=== PATIENT | female | born 1960 | race Caucasian/White ===

== ENCOUNTER 2017-10-11 12:09 | Observation (INO) | payer OTHER ==
[~2017-10-11] VITALS: Ht 154.9 cm; Wt 65.8 kg
--- OUTSIDE RECORDS SUMMARY | 2017-10-11 12:11 | XMS REPORT | Summary of Care ---
Author Author Rohan Hale, Sigrid Mckenna Unknown Address Unknown Phone Unavailable Care Team Providers Care Preschool Adviser Name Role Phone AMMON Lutz, DALE Unavailable Unavailable Rohan Hale, Sigrid Unavailable Unavailable MARY Lutz, SAÚL Unavailable Unavailable EASTON N.PSharonda, NENITA Unavailable Unavailable RUPERTO MCCLELLAN [place], NEENA ELLIOTT Unavailable Unavailable RUPERTO Lutz, NEENA Unavailable Unavailable Ammon MCCLELLAN, Dale Unavailable Unavailable Unavailable Unavailable Functional Status Name Dates Details Functional status health issues are not documented Status: Name Dates Details Cognitive status health issues are not documented Status: Problems Name Dates Details Encounter for routine gynecological examination (V72.31, Z01.419) Status: Active Visit for screening mammogram (V76.12, Z12.31) Status: Active Lump or mass in breast (611.72, N63.0) Status: Active Abdominal pain (789.00, R10.9) Status: Active UTI (lower urinary tract infection) (599.0, N39.0) Status: Active Diverticulitis of colon (562.11, K57.32) Status: Active Chest pain (786.50, R07.9) Status: Active Hip pain, acute, right (719.45, M25.551) Status: Active Nail disorder (703.9, L60.9) Status: Active Dilatation, aorta, congenital (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, 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) Status: Active Essential (primary) hypertension (401.9, I10) Status: Active Aortic aneurysm (441.9, I71.9) Status: Active Heart palpitations (785.1, R00.2) Status: Active Hyperlipidemia (272.4, E78.5) Status: Active Shortness of breath (786.05, R06.02) Status: Active Acute non-recurrent pansinusitis (461.8, J01.40) Status: Active Dysuria (788.1, R30.0) Status: Active Throat irritation (478.29, J39.2) Status: Active Essential (primary) hypertension (401.9, I10) Status: Active Oral thrush (112.0, B37.0) Status: Active 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, 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 Allergy to iodine (V14.8, Z88.8) Status: Active Hoarseness, persistent (784.42, R49.0) Status: Active Medications Name Dates Details Irbesartan 75 MG Oral Tablet TAKE 1 TABLET BY MOUTH EVERY DAY FOR HYPERTENSION Quantity: 90 CINDY HERNANDEZ M.D.ANTINOS * Start : 23-May-2017 Active Aspirin 81 MG TABS daily * Refills: 0 Active Simvastatin 40 MG Oral Tablet TAKE 1 TABLET DAILY AT BEDTIME * Quantity: 90 Refills: 1 MCCARTY-FOSTER N.P., NENITA * Start : 23-Jun-2016 Active Nystatin 229120 UNIT/ML Mouth/Throat Suspension SWISH AND SPIT 5ML 4 TIMES A DAY * Quantity: 200 Refills: 2 MCCARTY-FOSTER N.P., NENITA * Start : 11-Dec-2016 Active Nystatin 789768 UNIT/ML Mouth/Throat Suspension SWISH AND SWALLOW 5 ML 3 TIMES DAILY * Quantity: 200 Refills: 1 DALE MELGOZA M.D. * Start : 14-Jan-2017 Active Fluconazole 150 MG Oral Tablet TAKE 1 TABLET 1 TIME ONLY. * Quantity: 1 Refills: 1 DALE MELGOZA M.D. * Start : 14-Jan-2017 Active MethylPREDNISolone 32 MG Oral Tablet Take 32mg by mouth at 12 hours before and again at 2 hours before contrast media injection. * Quantity: 2 Refills: 0 CINDY HERNANDEZ M.D.ANTINOS * Start : 19-Jan-2017 Active Allergies and Adverse Reactions Name Dates Details Codeine Derivatives (Allergy) Status: Active Morphine Derivatives (Allergy) Status: Active Penicillins (Allergy) Status: Active prednisoLONE (Allergy) Status: Active Sulfa Drugs (Adverse Event) Reaction: Other Status: Active Fruit (Allergy) Reaction: Swelling Status: Active Past Medical History Name Dates Details History of Diverticulosis (562.10, K57.90) Status: Resolved History of essential hypertension (V12.59, Z86.79) Status: Resolved History of Fibrosis of uterus (621.8, N85.8) Status: Resolved History of hiatal hernia (V12.79, Z87.19) Status: Resolved History of Multiparity (V61.5, Z64.1) Status: Resolved History of neutropenia (V12.3, Z86.2) Status: Resolved History of Rectal polyp (569.0, K62.1) Status: Resolved Personal history of urinary tract infection (V13.02, Z87.440) Status: Resolved Procedures Procedure Dates Details History of Hysterectomy Completed History of Abdominoplasty Completed History of Oophorectomy Completed History of Breast Surgery Reduction Procedure Elective Completed History of Section Completed Immunization Name Dates Details Immunizations not documented Family History Name Dates Details Family history of Thyroid Disorder (V18.19) Comments: Family History Status: Active Family history of Heart Disease (V17.49) Comments: Family History Status: Active Family history of Kidney Cancer (V16.51) Comments: Family History Status: Active Family history of Type 2 Diabetes Mellitus Comments: Family History Status: Active Name Dates Details Family history of Hypertension (V17.49) Status: Active Family history of Cancer Status: Active Family history of Diabetes Mellitus (V18.0) Status: Active Family history of Coronary artery disease (414.00, I25.10) Status: Active Social History Name Dates Details - Status: Name Dates Details Never smoker Vital Signs Date Test Result Details No Known Vitals to report Results Date Description Value Details Results not documented Plan of Care Name Dates Details Planned Observations Planned Goals not documented Instructions Name Dates Details Instructions not documented Encounters Appointment; CHELLY STOKES M.D. Encounter Diagnosis: Problem not documented On: 24-Feb-2016 15:00 Appointment; SAÚL HERNANDEZ M.D. Encounter Diagnosis: Problem not documented On: 23-Mar-2016 11:40 Appointment; RODRIGO HUYNH Encounter Diagnosis: Problem not documented On: 05-May-2016 10:00 Appointment; SAÚL HERNANDEZ M.D. Encounter Diagnosis: Problem not documented On: 23-Jun-2016 13:20 Appointment; NENITA MCCORMACK NP Encounter Diagnosis: Problem not documented On: 11-Dec-2016 10:45 Appointment; NENITA MCCORMACK NP Encounter Diagnosis: Problem not documented On: 12-Jan-2017 13:30 Appointment; DALE MELGOZA M.D. Encounter Diagnosis: Problem not documented On: 14-Jan-2017 9:45 Appointment; DALE MELGOZA M.D. Encounter Diagnosis: Problem not documented On: 04-Feb-2017 13:45
[2017-10-11] MEDS ORDERED: SODIUM CHLORIDE 0.9% 1000ML 1,000 ML IV STA (12:16)
[2017-10-11] MEDS ORDERED: ONDANSETRON HCL INJ 2 MG/ML VIAL IV STA (12:16)
[2017-10-11] MEDS ORDERED: MORPHINE SULFATE 4 MG/ML SYR IV STA (12:16)
[2017-10-11] MEDS ORDERED: DIATRIZOATE MEGL/DIATRIZOA SOD 30 ML BTL PO ONE (12:30)
[2017-10-11] MEDS ORDERED: MORPHINE SULFATE 2 MG/ML SYR ONE (12:44)
[2017-10-11 12:49] LABS: BASOPHILS % 0.9 % (0.0-1.0); EOSINOPHILS # (AUTO) 0.1 (0.0-0.4); EOSINOPHILS % 6.6 % (0.0-6.0); HEMATOCRIT 40.3 % (34.2-44.1); HEMOGLOBIN 13.6 g/dL (12.0-16.0); LYMPHOCYTES # (AUTO) 0.9 (1.0-3.2); LYMPHOCYTES % 44.1 % (18.0-39.1); MEAN CORPUSCULAR HEMOGLOBIN 29.6 pg (28-32); MEAN CORPUSCULAR HGB CONC 33.7 g/dL (31-35); MEAN CORPUSCULAR VOLUME 87.8 fL (81-99); MONOCYTES # (AUTO) 0.3 (0.2-0.8); MONOCYTES % 16.1 % (4.4-11.3); NEUTROPHILS # (AUTO) 0.7 (2.1-6.9); NEUTROPHILS % 32.3 % (38.7-80.0); PLATELET COUNT 215 x10e3/uL (140-360); RED BLOOD COUNT 4.59 x10e6/uL (3.6-5.1); RED CELL DISTRIBUTION WIDTH 11.9 % (11.7-14.4)
[2017-10-11 13:01] LABS: BILIRUBIN,URINE NEGATIVE (NEGATIVE); KETONES,URINE NEGATIVE (NEGATIVE); LEUKOCYTE ESTERASE ,URINE NEGATIVE (NEGATIVE); NITRITE,URINE NEGATIVE (NEGATIVE); PROTEIN,URINE DIPSTICK NEGATIVE (NEGATIVE); URINE UROBILINOGEN 0.2 mg/dL (0.2 - 1)
[2017-10-11 13:03] LABS: CLARITY,URINE CLEAR (CLEAR); COLOR,URINE YELLOW (YELLOW)
[2017-10-11 13:07] LABS: ALANINE AMINOTRANSFERASE 14 IU/L (0-55); ALBUMIN 4.2 g/dL (3.5-5.0); ALBUMIN/GLOBULIN RATIO 1.1 (0.8-2.0); ALKALINE PHOSPHATASE 74 IU/L (40-150); ANION GAP 12.4 mmol/L (8-16); BLOOD UREA NITROGEN 14 mg/dL (7-26); BUN/CREATININE RATIO 18 (6-25); CALCIUM 9.2 mg/dL (8.4-10.2); CARBON DIOXIDE 26 mmol/L (22-29); CHLORIDE 105 mmol/L (98-107); CREATININE, SERUM 0.77 mg/dL (0.57-1.11); EST GLOMERULAR FILTRATION RATE > 60 ML/MIN (60-); GLUCOSE 102 mg/dL (74-118); POTASSIUM 3.4 mmol/L (3.5-5.1); SODIUM 140 mmol/L (136-145)
[2017-10-11 14:19] LABS: BACTERIA,URINE FEW /HPF; EPITHELIAL CELLS,URINE FEW /LPF; MUCUS,URINE MANY (RARE); RBC,URINE 0-5 /HPF (0-5); WBC,URINE (MAN) 0-5 /HPF (0-5)
--- NOTE | 2017-10-11 14:20 | Diagnostic Imaging Report ---
PROCEDURE: CT ABDOMEN AND PELVIS WITH CONTRAST TECHNIQUE: The abdomen and pelvis were scanned utilizing a multidetector helical scanner from the diaphragm to the lesser trochanter after the IV administration of 100 cc of Isovue 370 and the oral administration of dilute Gastrografin. Coronal and sagittal multiplanar reformations were obtained. COMPARISON: None. INDICATIONS: RIGHT LOWER QUADRANT PAIN FINDINGS: LOWER THORAX: Unremarkable HEPATOBILIARY: No focal hepatic lesions. No biliary ductal dilatation. Gallbladder is unremarkable. SPLEEN: No splenomegaly. PANCREAS: No focal masses or ductal dilatation. ADRENALS: No adrenal nodules. KIDNEYS/URETERS: 0.9 cm nonobstructing calculus in the superior pole of the right kidney (series 2, image 21). No other renal or ureteral calculi. No hydronephrosis, hydroureter, or evidence of obstruction. No solid enhancing masses. PELVIC ORGANS/BLADDER: The bladder is unremarkable. Uterus is absent. No adnexal masses. PERITONEUM / RETROPERITONEUM: No free air or fluid. LYMPH NODES: No lymphadenopathy. VESSELS: Atherosclerotic calcification of the infrarenal abdominal aorta and proximal iliac vessels. GI TRACT: Appendix is dilated, measuring 1.0-1.1 cm in diameter, with mild enhancement. No significant periappendiceal stranding (series 2, images 60-66 and coronal images 43-49). Distal descending and proximal sigmoid colon diverticulosis without surrounding inflammatory changes to suggest diverticulitis. No bowel dilation or evidence of obstruction. BONES AND SOFT TISSUES: No aggressive lytic lesion. No significant soft tissue abnormalities. IMPRESSION: 1. dilated appendix with mild enhancement. No significant periappendiceal stranding. This may represent very early/evolving appendicitis, in the appropriate clinical setting. 2. Distal descending and sigmoid colon diverticulosis, without diverticulitis. The rest of the bowel is grossly unremarkable. 3. 0.9 cm nonobstructing calculus in the superior pole of the right kidney 4. Findings discussed with Dr. Estrada October 11, 2017 at 1420 hrs. Manny Hernandez M.D. Dictated by: Manny Hernandez M.D. on 10/11/2017 at 14:30 Electronically approved by: Manny Hernandez M.D. on 10/11/2017 at 14:30
[2017-10-11] MEDS ORDERED: SODIUM CHLORIDE 0.9% 50ML 50 ML ONE (14:22)
[2017-10-11] MEDS ORDERED: IOPAMIDOL 370 MG/ML 200 ML INFUS..BTL INJ ONE (14:22)
[2017-10-11] MEDS ORDERED: HYDROMORPHONE 1MG/1ML INJ IV PRN (15:45)
[2017-10-11] MEDS: D5.45%NS/KCL 20MEQ 1,000 ML IV SCH (15:59)
--- OUTSIDE RECORDS SUMMARY | 2017-10-11 16:08 | XMS REPORT ---
[facility] Address Unknown Phone Unavailable Care Team Providers Care Tub Tender Name Role Phone CARLA DIAZ Unavailable Unavailable Problems This patient has no known problems. Allergies, Adverse Reactions, Alerts This patient has no known allergies or adverse reactions. Medications This patient has no known medications. Results Test Description Test Time Test Comments Text Results Atomic Results Result Comments CT ABDOMEN/PELVIS W [place] [id number] Patient Name: OLENA ANTHONY MR #: [id number] : 1960 Age/Sex: 57/F Req #: [id number] Adm Physician: Ordered by: ELISA LOMELI APPARATUS LINEMAN Report #: [id number] Location: ER Room/Bed: Procedure: [id number] CT/CT ABDOMEN/PELVIS W Exam Date: 10/11/17 Exam Time: 1320 REPORT STATUS: Signed PROCEDURE: CT ABDOMEN AND PELVIS WITH CONTRAST TECHNIQUE: The abdomen and pelvis were scanned utilizing a multidetector helical scanner from the diaphragm to the lesser trochanter after the IV administration of 100 cc of Isovue 370 and the oral administration of dilute Gastrografin. Coronal and sagittal multiplanar reformations were obtained. COMPARISON: None. INDICATIONS: RIGHT LOWER QUADRANT PAIN FINDINGS: LOWER THORAX: Unremarkable HEPATOBILIARY: No focal hepatic lesions. No biliary ductal dilatation. Gallbladder is unremarkable. SPLEEN: No splenomegaly. PANCREAS: No focal masses or ductal dilatation. ADRENALS: No adrenal nodules. KIDNEYS/URETERS: 0.9 cm nonobstructing calculus in the superior pole of the right kidney (series 2, image 21). No other renal or ureteral calculi. No hydronephrosis, hydroureter, or evidence of obstruction. No solid enhancing masses. PELVIC ORGANS/BLADDER: The bladder is unremarkable. Uterus is absent. No adnexal masses. PERITONEUM / RETROPERITONEUM: No free air or fluid. LYMPH NODES: No lymphadenopathy. VESSELS: Atherosclerotic calcification of the infrarenal abdominal aorta and proximal iliac vessels. GI TRACT: Appendix is dilated, measuring 1.0-1.1 cm in diameter, with mild enhancement. No significant periappendiceal stranding ( series 2, images 60-66 and coronal images 43-49). Distal descending and proximal sigmoid colon diverticulosis without surrounding inflammatory changes to suggest diverticulitis. No bowel dilation or evidence of obstruction. BONES AND SOFT TISSUES: No aggressive lytic lesion. No significant soft tissue abnormalities. IMPRESSION: 1. dilated appendix with mild enhancement. No significant periappendiceal stranding. This may represent very early/evolving appendicitis, in the appropriate clinical setting. 2. Distal descending and sigmoid colon diverticulosis, without diverticulitis. The rest of the bowel is grossly unremarkable. 3. 0.9 cm nonobstructing calculus in the superior pole of the right kidney 4. Findings discussed with Dr. Diaz October 11, 2017 at 1420 hrs. Isabella Hernandez M.D. Dictated by: Isabella Hernandez M.D. on 10/11/2017 at 14:30 Electronically approved by: Isabella Hernandez M.D. on 2017 at 14:30 Dictated By: ISABELLA HERNANDEZ MD 1430 Transcribed By: NAOMY on 1430 COPY TO: ELISA LOMELI NP
[2017-10-11 16:32] VITALS: BP 149/86
[2017-10-11] MEDS ORDERED: CEFOXITIN SOD 1 GM VIAL IV SCH (17:00)
[2017-10-11 17:14] VITALS: BP 149/86
[2017-10-11 17:18] VITALS: BP 149/86
[2017-10-11] MEDS: METRONIDAZOLE 500MG/NS 100ML 100 ML IV SCH (17:51)
[2017-10-11] MEDS ORDERED: METRONIDAZOLE 500MG/NS 100ML IV SCH (18:00)
[2017-10-11] MEDS ORDERED: LEVOFLOXACIN 500MG/D5W 100ML 100 ML IV SCH (18:15)
[2017-10-11 19:35] VITALS: BP 121/64
[2017-10-11] MEDS: ONDANSETRON HCL INJ 2 MG/ML VIAL IV PRN (19:41)
[2017-10-11 20:19] VITALS: BP 121/64
[2017-10-11] MEDS ORDERED: CEFOXITIN 1GM/ DEXTROSE 50ML ML IV SCH (22:00)
[2017-10-12] VITALS: BP 98/59
[2017-10-12] MEDS: METRONIDAZOLE 500MG/NS 100ML 100 ML IV SCH ×3 (00:35→11:40)
[2017-10-12] MEDS: ONDANSETRON HCL INJ 2 MG/ML VIAL IV PRN ×2 (00:46→07:50)
[2017-10-12] MEDS: D5.45%NS/KCL 20MEQ 1,000 ML IV SCH ×2 (00:53→08:06)
[2017-10-12 05:00] VITALS: BP 95/59
[2017-10-12 07:11] LABS: BASOPHILS % 0.6 % (0.0-1.0); EOSINOPHILS # (AUTO) 0.2 (0.0-0.4); EOSINOPHILS % 10.3 % (0.0-6.0); HEMATOCRIT 37.1 % (34.2-44.1); HEMOGLOBIN 12.5 g/dL (12.0-16.0); LYMPHOCYTES # (AUTO) 0.8 (1.0-3.2); LYMPHOCYTES % 46.9 % (18.0-39.1); MEAN CORPUSCULAR HEMOGLOBIN 29.9 pg (28-32); MEAN CORPUSCULAR HGB CONC 33.7 g/dL (31-35); MEAN CORPUSCULAR VOLUME 88.8 fL (81-99); MONOCYTES # (AUTO) 0.3 (0.2-0.8); MONOCYTES % 18.9 % (4.4-11.3); NEUTROPHILS # (AUTO) 0.4 (2.1-6.9); NEUTROPHILS % 22.7 % (38.7-80.0); PLATELET COUNT 194 x10e3/uL (140-360); RED BLOOD COUNT 4.18 x10e6/uL (3.6-5.1); RED CELL DISTRIBUTION WIDTH 11.9 % (11.7-14.4)
[2017-10-12 07:26] LABS: ANION GAP 10.7 mmol/L (8-16); BLOOD UREA NITROGEN 8 mg/dL (7-26); BUN/CREATININE RATIO 10 (6-25); CALCIUM 8.7 mg/dL (8.4-10.2); CARBON DIOXIDE 27 mmol/L (22-29); CHLORIDE 107 mmol/L (98-107); CREATININE, SERUM 0.79 mg/dL (0.57-1.11); EST GLOMERULAR FILTRATION RATE > 60 ML/MIN (60-); GLUCOSE 94 mg/dL (74-118); POTASSIUM 3.7 mmol/L (3.5-5.1); SODIUM 141 mmol/L (136-145)
[2017-10-12 07:33] VITALS: BP 105/67
--- NOTE | 2017-10-12 07:52 | History and Physical ---
CHIEF COMPLAINT: Nausea, vomiting and abdominal pain since 1 week. HISTORY OF PRESENT ILLNESS: A 57-year-old pleasant white female with a past medical history of hypertension was admitted at [facility] yesterday with the above complaints. The patient was seen in the office yesterday morning with the above complaints. As per the patient, since the last 1 week the patient started having nausea, vomiting and abdominal pain initially for the first 1-2 days. The patient had like 3-4 vomiting per day. Then gradually the vomiting got better, but nausea and abdominal pain on and off continued. History of low-grade fever. Hence, the patient came to my office yesterday. After examining and seeing the patient, I referred the patient to the ER for further care and treatment. In the emergency room, the patient was seen by the emergency room doctor, and was admitted to the hospital with possible appendicitis. The patient was seen surgeon, Dr. John Winters, last evening. At present, the patient is lying comfortably in bed. No apparent distress. No chest pain. No shortness of breath. No nausea or vomiting. Abdominal cramps and "gurgling sound" of the abdomen plus history of loose bowels last night plus. No loss of consciousness. No palpitations. No headaches. No hematemesis. No melena. No hematuria. No dysuria. No fever. No cough. No witnessed seizures. PAST MEDICAL HISTORY: Hypertension. MEDICATIONS: Avapro 75 mg p.o. daily. SURGICAL HISTORY: times 2, hysterectomy, breast reduction. FAMILY HISTORY: Father has hypertension. SOCIAL HISTORY: No smoking. No alcohol. No illicit drug use. ALLERGIES: PENICILLIN, CODEINE AND SULFA. REVIEW OF SYSTEMS: As per HPI. PHYSICAL EXAMINATION GENERAL: The patient is alert and oriented times 3. No apparent distress. Laying in bed. VITALS: Temperature is 97, pulse 60 per minute, respirations 16 per minute, blood pressure is 110/60, and saturation is 96%. HEENT: No signs of icterus. No pallor. Normocephalic and atraumatic. PERRLA. NECK: Soft and supple. LUNGS: Air entry bilaterally equal. ABDOMEN: Soft. Right-sided mild tenderness plus. Bowel sounds heard. AUTO PHONE INSTALLER: Alert and oriented times 3. No focal deficit. EXTREMITIES: No cyanosis or clubbing. No calf pain. LABS: On admission to the ER, white count 2.1, hemoglobin 13, hematocrit 40.3, and platelets 215,000. Sodium 140, potassium 3.4, chloride 105, bicarb 26, BUN 14, creatinine 0.7, glucose 102. LFTs noted. Urine noted. CT of the abdomen and pelvis showed dilated appendix with mild enhancement. No significant periappendiceal stranding. Distal descending and sigmoid colon diverticulosis without diverticulitis. A 0.9 cm nonobstructing calculus in the superior pole of the right kidney. ASSESSMENT 1. Abdominal pain, nausea and vomiting. 2. History of hypertension. PLAN: Admit the patient med/surg. N.p.o., IV fluids, IV antibiotics of Levaquin and Flagyl. Surgeon, Dr. John Winters, noted. Could be gastroenteritis. Further care and treatment while the patient is in the hospital. Discussed with the patient in detail. Job#: [id number]
[2017-10-12 08:28] LABS: ANISOCYTOSIS N; EOSINOPHILS % (MANUAL) 9 % (0-7); LYMPHOCYTES % (MANUAL) 46 % (19-48); MONOCYTES % (MANUAL) 19 % (3.4-9.0); NEUTROPHILS % (MANUAL) 26 % (40-74); PLATELET ESTIMATE ADEQUATE; PLATELET MORPHOLOGY COMMENT NORMAL
[2017-10-12 11:33] VITALS: BP 117/64
[2017-10-12 12:00] VITALS: BP 117/64
[2017-10-12] MEDS ORDERED: CIPRO500 MG PO (15:09)
[2017-10-12 15:33] VITALS: BP 110/57
== END 2017-10-12 15:35 | disposition home or self-care (01) ==
LOC: ER 12:09 → ERHOLD 16:06 → IMCU 16:08
PROVIDERS: ADMIT Internal Medicine; ATTEND Internal Medicine
DX: K52.9 Noninfective gastroenteritis and colitis, unspecified (principal); K38.8 Other specified diseases of appendix; I10 Essential (primary) hypertension
CPT/HCPCS: 36415 ×2; 74177; 80048; 80053; 81001; 85025 ×2; 87086; 99284; G0378 ×2; J0694; J1956; J2405 ×2; J7030; Q9967; J2270

== ENCOUNTER → 2017-12-30 | Outpatient (CLI) | payer OTHER ==
[~2017-12-30] MED LIST: CIPRO500 MG PO
--- NOTE | 2017-12-30 12:32 | Diagnostic Imaging Report ---
PROCEDURE:X-RAY ABDOMEN - KUB COMPARISON:Abdominal CT 10/11/2017 INDICATIONS:CALCULUS OF KIDNEY FINDINGS: Stable 0.7 cm superior pole right renal calculus. Phleboliths project over the pelvis. There are no additional calcifications projected over the renal shadows, expected course of the ureters or bladder. There is a non-obstructed bowel-gas pattern. There are no acute osseous abnormalities. The lung bases are clear. CONCLUSION: Stable calculus in the superior pole of the right kidney. Dictated by: Jaime Toure M.D. on 12/30/2017 at 12:33 Electronically approved by: Jaime Toure M.D. on 12/30/2017 at 12:33
== END ==
LOC: RAD 11:34
PROVIDERS: ATTEND Urology
DX: N20.0 Calculus of kidney (principal)
CPT/HCPCS: 74018

== ENCOUNTER 2019-05-28 11:32 | Inpatient (IN) | payer OTHER ==
[~2019-05-28] VITALS: Ht 154.9 cm; Wt 64.4 kg
--- OUTSIDE RECORDS SUMMARY | 2019-05-28 11:34 | XMS REPORT | Continuity of Care Document ---
Author Author [facility] Address Unknown Phone Unavailable Care Team Providers Care Visitor Services Associate Name Role Phone Idibon Information Wyst Unavailable Unavailable Problems Problem Status Onset Date Classification Date Reported Comments Source Onychomycosis Active Problem 07/02/2016 [facility] Cellulitis of toe of right foot Active Problem 07/02/2016 [facility] Medications No Data Provided for This Section Allergies, Adverse Reactions, Alerts No Known Medication Allergies Immunizations No Data Provided for This Section Results No Data Provided for This Section Pathology Reports No Data Provided for This Section Diagnostic Reports No Data Provided for This Section Consultation Notes No Data Provided for This Section Discharge Summaries No Data Provided for This Section History and Physicals No Data Provided for This Section Vital Signs No Data Provided for This Section Encounters Location Location Details Encounter Type Encounter Number Reason For Visit Attending Provider ADM Date DC Date Status Source [facility] Unknown [id number] 03/17/2016 [facility]17[facility] [id number] 03/17/2016 03[facility]17[facility]2016 [facility] Unknown [id number] 03/17/2016 03/17/2016 [facility] Other [id number] 03/19/2016 03/19/2016 [facility] Other [id number] 03/19/2016 03/19/2016 [facility] refill [id number] 06/22/2016 06/22/2016 [facility] Procedures No Data Provided for This Section Assessment and Plan No Data Provided for This Section Plan of Care No Data Provided for This Section Social History Social History Date Source Social History ElementQualifiersDate Reported Do you smoke? . Answer: No Jun 25, 2016 Use of recreational / street drugs? . Answer: No Jun 25, 2016 Marital Status: . Jun 25, 2016 Do you exercise? . Answer: Yes, Type: running at home work outs 3x/week Jun 25, 2016 Do you drink alcohol? . 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/2016 [facility] Family History Value Date Source QualifierDescriptionCommentDate Reported Maternal Grandmother Comment not available Jun 25, 2016 Paternal Grandmother Comment not available Jun 25, 2016 Siblings Comment not available Jun 25, 2016 Maternal Grandfather Comment not available Jun 25, 2016 Children Comment not available Jun 25, 2016 Adopted Comment not available Jun 25, 2016 Father hypertension, heart disease Jun 25, 2016 Paternal Grandfather Comment not available Jun 25, 2016 Mother alive hypertension Jun 25, 2016 Other: Comment not available Jun 25, 2016 07/02/2016 [facility] Advance Directives No Data Provided for This Section Functional Status No Data Provided for This Section
--- OUTSIDE RECORDS SUMMARY | 2019-05-28 11:35 | XMS REPORT ---
Author Author Shai Worrell Organization [employer] Address Unknown Phone Unavailable Care Team Providers Care Pressurizer Name Role Phone Shai Worrell Unavailable Encounters Encounter Location Date Unknown [facility] March 17, 2016 Other [facility] March 19, 2016 Problems Problem Type Condition ICD-9 Code Onset Dates Condition Status Problem Onychomycosis B35.1 Active Social History Social History Element Qualifiers Date Reported Do you smoke? . Answer: No March 09, 2016 Use of recreational / street drugs? . Answer: No March 09, 2016 Marital Status: . March 09, 2016 Do you exercise? . Answer: Yes, Type: running at home work outs 3x/week March 09, 2016 Do you drink alcohol? . 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
--- OUTSIDE RECORDS SUMMARY | 2019-05-28 11:35 | XMS REPORT ---
Author Author Shai Worrell Organization [employer] Address Unknown Phone Unavailable Care Team Providers Care Reservations Specialist Name Role Phone Shai Worrell Unavailable Encounters Encounter Location Date Unknown [facility] March 17, 2016 Problems Problem Type Condition ICD-9 Code [...]
--- OUTSIDE RECORDS SUMMARY | 2019-05-28 11:35 | XMS REPORT ---
Author Author Shai Worrell Organization [employer] Address Unknown Phone Unavailable Care Team Providers Care Nitroglycerin Nitrator Operator Batch Name Role Phone Shai Worrell Unavailable Encounters Encounter Location Date Unknown [facility] March 17, 2016 Other [facility] March 19, 2016 medication refill [facility] Jun 22, 2016 Problems Problem Type Condition ICD-9 Code Onset Dates Condition Status Problem Onychomycosis B35.1 Active Problem Cellulitis of toe of right foot L03.031 Active Social History Social History Element Qualifiers [...] 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
--- OUTSIDE RECORDS SUMMARY | 2019-05-28 11:35 | XMS REPORT | Summary of Care ---
Author Author Jamal Hale, Denisse Mckenna Unknown Address Unknown Phone Unavailable Care Team Providers Care Erector Operator Name Role Phone ABAD Lutz, BO Unavailable Unavailable MARY Lutz, SAÚL Unavailable Unavailable EASTON N.P., NENITA Unavailable Unavailable Jamal Hale, Denisse Unavailable Unavailable RUPERTO MCCLELLAN [place], NEENA ELLIOTT Unavailable Unavailable RUPERTO Lutz, NEENA Unavailable Unavailable ABAD MCCLELLAN [place], BO Reid Unavailable Unavailable Unavailable Unavailable Functional Status Name [...] NENITA * Start : 23-Jun-2016 Active Nystatin 873491 UNIT/ML Mouth/Throat Suspension SWISH AND SPIT 5ML 4 TIMES A DAY * Quantity: 200 Refills: 2 MCCARTY-FOSTER N.P., NENITA * Start : 11-Dec-2016 Active Nystatin 023769 UNIT/ML Mouth/Throat Suspension SWISH AND SWALLOW 5 ML 3 TIMES DAILY * Quantity: 200 Refills: 1 BO MELGOZA M.D. * Start : 14-Jan-2017 Active Fluconazole 150 MG Oral Tablet TAKE 1 TABLET 1 TIME ONLY. * Quantity: 1 Refills: 1 BO MELGOZA M.D. * Start : 14-Jan-2017 Active MethylPREDNISolone 32 MG Oral Tablet Take 32mg by mouth at 12 hours before and again at 2 hours before contrast media injection. * Quantity: 2 Refills: 0 SUNNY HERNANDEZ M.D.STANTINOS * Start : 19-Jan-2017 Active Allergies and [...] Dates Details Instructions not documented Encounters Appointment; NENITA MCCORMACK NP Encounter Diagnosis: Problem not documented On: 11-Dec-2016 10:45 Appointment; NENITA MCCORMACK NP Encounter Diagnosis: Problem not documented On: 12-Jan-2017 13:30 Appointment; BO MELGOZA M.D. Encounter Diagnosis: Problem not documented On: 14-Jan-2017 9:45 Appointment; BO MELGOZA M.D. Encounter Diagnosis: Problem not documented On: 04-Feb-2017 13:45
[2019-05-28] MEDS ORDERED: ONDANSETRON HCL INJ 2MG/ML 2ML 2 MG/ML VIAL IV STA (11:53)
[2019-05-28] MEDS ORDERED: HYDROMORPHONE 1MG/1ML INJ IV STA (11:53)
[2019-05-28] MEDS ORDERED: SODIUM CHLORIDE 0.9% 1000ML 1,000 ML IV STA ×4 (11:53→23:25)
[2019-05-28 12:34] LABS: BASOPHILS % 0.6 % (0.0-1.0); EOSINOPHILS # (AUTO) 0.1 (0.0-0.4); EOSINOPHILS % 2.4 % (0.0-6.0); HEMATOCRIT 40.2 % (34.2-44.1); HEMOGLOBIN 13.2 g/dL (12.0-16.0); LYMPHOCYTES % 17.6 % (18.0-39.1); MEAN CORPUSCULAR HEMOGLOBIN 28.9 pg (28-32); MEAN CORPUSCULAR HGB CONC 32.8 g/dL (31-35); MEAN CORPUSCULAR VOLUME 88.2 fL (81-99); MONOCYTES # (AUTO) 0.5 (0.2-0.8); MONOCYTES % 9.1 % (4.4-11.3); NEUTROPHILS # (AUTO) 3.8 (2.1-6.9); NEUTROPHILS % 70.1 % (38.7-80.0); PLATELET COUNT 201 x10e3/uL (140-360); RED BLOOD COUNT 4.56 x10e6/uL (3.6-5.1); RED CELL DISTRIBUTION WIDTH 12.6 % (11.7-14.4)
[2019-05-28 12:42] LABS: ALANINE AMINOTRANSFERASE 14 IU/L (0-55); ALBUMIN/GLOBULIN RATIO 1.3 (0.8-2.0); ALKALINE PHOSPHATASE 91 IU/L (40-150); ANION GAP 15.7 mmol/L (8-16); BLOOD UREA NITROGEN 15 mg/dL (7-26); BUN/CREATININE RATIO 17 (6-25); CALCIUM 9.8 mg/dL (8.4-10.2); CARBON DIOXIDE 26 mmol/L (22-29); CHLORIDE 103 mmol/L (98-107); CREATINE KINASE 45 IU/L (29-168); CREATININE, SERUM 0.87 mg/dL (0.57-1.11); EST GLOMERULAR FILTRATION RATE > 60 ML/MIN (60-); GLUCOSE 139 mg/dL (74-118); POTASSIUM 3.7 mmol/L (3.5-5.1); SODIUM 141 mmol/L (136-145)
[2019-05-28 13:00] LABS: BILIRUBIN,URINE NEGATIVE (NEGATIVE); CLARITY,URINE CLEAR (CLEAR); COLOR,URINE YELLOW (YELLOW); KETONES,URINE NEGATIVE (NEGATIVE); LEUKOCYTE ESTERASE ,URINE SMALL (NEGATIVE); NITRITE,URINE POSITIVE (NEGATIVE); PROTEIN,URINE DIPSTICK 2+ (NEGATIVE); URINE UROBILINOGEN 0.2 mg/dL (0.2 - 1)
[2019-05-28 13:03] LABS: BACTERIA,URINE FEW /HPF; EPITHELIAL CELLS,URINE FEW /LPF
[2019-05-28] MEDS ORDERED: DIPHENHYDRAMINE HCL INJ 50 MG/ML VIAL IV ONE (13:30)
[2019-05-28] MEDS ORDERED: CEFTRIAXONE SOD 1 GM/NS 50 ML 50 ML IV ONE (13:45)
[2019-05-28 14:20] LABS: INR 0.84
[2019-05-28 14:21] LABS: PARTIAL THROMBOPLASTIN TIME 27.7 seconds (23.8-35.5)
[2019-05-28] MEDS ORDERED: SODIUM CHLORIDE 0.9% 100 ML 100 ML ONE (14:35)
[2019-05-28] MEDS ORDERED: IOPAMIDOL 370 MG/ML 200 ML INFUS..BTL INJ ONE (14:35)
[2019-05-28] MEDS ORDERED: PROMETHAZINE 12.5MG/ NACL 0.9% 12.5 MG/50 ML BAG IV ONE (15:00)
--- NOTE | 2019-05-28 15:41 | Diagnostic Imaging Report ---
EXAM: CT Angiogram Chest, Abdomen, and Pelvis WITHOUT and WITH contrast INDICATION: Chest pain radiating to back, evaluation for dissection. COMPARISON: None. TECHNIQUE: The chest, abdomen and pelvis were scanned utilizing a multidetector helical scanner from the thoracic inlet through the level of the pubic symphysis before and after administration of IV contrast. Images were obtained prior to contrast administration and during arterial phase. Coronal and sagittal reformations were obtained. CT Angiogram protocol was performed. 3D reconstruction was performed and viewed on dedicated workstation. Dose modulation, iterative reconstruction, and/or weight based adjustment of the mA/kV was utilized to reduce the radiation dose to as low as reasonably achievable. IV CONTRAST: 100 mL of Omnipaque 300 RADIATION DOSE: Total DLP: 998.8 mGy*cm COMPLICATIONS: None FINDINGS: No evidence of aortic dissection. Mild scattered atherosclerotic calcifications of the nonaneurysmal thoracic and abdominal aorta. The main pulmonary artery is not enlarged. No evidence of central pulmonary embolism. LINES/ TUBES: None. LUNGS AND AIRWAYS: The central airways are patent. No focal consolidation. No pulmonary edema. No suspicious pulmonary nodules. PLEURA: No pleural effusion. No pneumothorax. HEART AND MEDIASTINUM: The thyroid gland is normal. No supraclavicular, axillary, mediastinal, or hilar lymphadenopathy. The heart is not enlarged. No pericardial effusion. No evidence of right heart strain. The main pulmonary artery measures up to 2.7 cm. Small sliding hiatal hernia. HEPATOBILIARY: Hepatic steatosis. No focal liver lesion. No biliary ductal dilation. Normal gallbladder. SPLEEN: No splenomegaly. PANCREAS: No focal masses or ductal dilatation. ADRENALS: No adrenal nodules. KIDNEYS/URETERS: There is a 6 mm obstructing calculus in the proximal right ureter with resulting moderate right hydroureteronephrosis. No other renal calculi. No left hydronephrosis. PELVIC ORGANS/BLADDER: Unremarkable. PERITONEUM / RETROPERITONEUM: No free air or fluid. LYMPH NODES: No lymphadenopathy. GI TRACT: No abnormal bowel wall thickening. No bowel obstruction. BONES AND SOFT TISSUES: No acute osseous injury. No suspicious lytic or blastic lesions. IMPRESSION: No aortic dissection. No pulmonary embolism. Obstructing 6 mm right proximal ureter calculus with resulting moderate right hydroureteronephrosis. No other renal calculi. No left hydronephrosis. Signed by: Bob Stanford MD on 05/28/2019 3:38 PM
[2019-05-28] MEDS ORDERED: CEFTRIAXONE SOD 1 GM/NS 50 ML 50 ML IV SCH (15:45)
[2019-05-28] MEDS ORDERED: PROMETHAZINE HCL (IM) 25 MG/ML VIAL IV PRN (15:45)
[2019-05-28] MEDS ORDERED: ONDANSETRON HCL INJ 2MG/ML 2ML 2 MG/ML VIAL IV PRN (15:45)
[2019-05-28] MEDS: SODIUM CHLORIDE 0.9% 1000ML 1,000 ML IV SCH (17:48)
[2019-05-28] MEDS ORDERED: IRBESARTAN75 MG PO (18:03)
--- NOTE | 2019-05-28 21:31 | NUR ---
DR BRITTON PAGED PTS BP 80/59, PT ALERT AND ORIENTED AT THIS TIME NO COMPLAINTS NOTED
--- NOTE | 2019-05-28 22:15 | NUR ---
DR. BRITTON CALLED, INFORMED OF PTS STATUS, HYPOTENSIVE AND FEVER, NEW ORDERS RECEIVED
[2019-05-28] MEDS ORDERED: ACETAMINOPHEN 325 MG TAB ONE (22:34)
[2019-05-28] MEDS: ACETAMINOPHEN 325 MG TAB PO PRN (22:36)
[2019-05-29] VITALS (19 sets, daily range): BP systolic 96–118; BP diastolic 61–72
--- NOTE | 2019-05-29 00:44 | History and Physical ---
CHIEF COMPLAINT: Nausea, vomiting, right-sided flank pain since last 2 days, progressively worsening. HISTORY OF PRESENT MEDICAL ILLNESS: A 58-year-old pleasant female with past medical history of hypertension, was admitted at [facility] today with above complaints. As per the patient since last two days, she started having right-sided flank pain associated with nausea and vomiting today, progressively getting worse and hence the patient came to the ER. In the emergency room, the patient was seen by emergency room doctor, Dr. Hand, and diagnosed with right renal colic, right obstructive ureteric stone, and moderate hydronephrosis. Admitted for further care and treatment. At present, the patient is lying comfortably in bed. No chest pain. No shortness of breath. No nausea, vomiting, and diarrhea at present. No cough. No loss of consciousness. No palpitations. No headaches. No hematemesis or melena. No hematuria or dysuria. No fever. No cough. No witnessed seizures. PAST MEDICAL HISTORY: 1. Hypertension. 2. Nephrolithiasis. SURGICAL HISTORY: 1. x2. 2. Hysterectomy. 3. Breast reduction. FAMILY HISTORY: Father diagnosed with hypertension. SOCIAL HISTORY: No smoking. No alcohol. No illicit drug use. ALLERGIES: PENICILLIN, CODEINE, AND SULFA. REVIEW OF SYSTEMS: As per HPI. PHYSICAL EXAMINATION: GENERAL: The patient is alert, awake, oriented x3. No apparent distress, lying in bed. VITAL SIGNS: Temperature is 98, pulse is 90 per minute, respiratory rate is 18 per minute, blood pressure is 120/70, saturation is 98%. SKIN: No cyanosis. No icterus. No pallor. HEENT: Normocephalic, atraumatic. PERRLA plus. NECK: Soft, supple. No JVD. No carotid bruit. No lymphadenopathy. LUNGS: Air entry bilaterally equal. HEART: S1 and S2 present. No murmur, gallop, or rub. ABDOMEN: Soft. Bowel sounds plus. Right flank tenderness plus. 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 No focal deficits. EXTREMITIES: No cyanosis. No clubbing. No edema. Peripheral pulses palpable. No calf pain. LABORATORY DATA: White count 5.3, hemoglobin 13.2, hematocrit 40.2, platelets 201. Sodium 141, potassium 3.7, chloride 103, bicarb 26. BUN 15, creatinine 0.8, glucose 139. LFTs noted. PT 12, INR 0.84, PTT 27.7. Urine shows nitrite positive, RBC 6 to 10, WBCs 6 to 10. CAT scan of chest, abdomen, and pelvis shows no aortic dissection, no pulmonary embolism. Obstructing 6 mm right proximal ureter calculus with resulting in moderate right hydronephrosis. No other renal calculi. No left hydronephrosis. ASSESSMENT: 1. Right-sided nephrolithiasis with moderate right hydronephrosis. 2. History of hypertension. PLAN: Admit the patient to medical floor. The patient has been given IV Rocephin, antibiotics x1 dose. The patient tolerated well. The patient is started on IV fluids and pain management. Consider Urology consultation, Dr. Spence. He is aware about the patient. Further care and treatment as per clinical course of the patient in the hospital. Discussed with the patient and family at bedside. MD CORBIN Park/MILLICENT /[id number]
[2019-05-29] MEDS ORDERED: LINEZOLID 600 MG/D5W 300ML 300 ML IV SCH (00:45)
[2019-05-29 01:03] LABS: BASOPHILS # (AUTO) 0.1 (0.0-0.1); BASOPHILS % 0.4 % (0.0-1.0); EOSINOPHILS % 0.2 % (0.0-6.0); HEMATOCRIT 33.1 % (34.2-44.1); HEMOGLOBIN 10.9 g/dL (12.0-16.0); LYMPHOCYTES # (AUTO) 0.3 (1.0-3.2); LYMPHOCYTES % 1.9 % (18.0-39.1); MEAN CORPUSCULAR HEMOGLOBIN 29.9 pg (28-32); MEAN CORPUSCULAR HGB CONC 32.9 g/dL (31-35); MEAN CORPUSCULAR VOLUME 90.9 fL (81-99); MONOCYTES # (AUTO) 0.5 (0.2-0.8); MONOCYTES % 2.9 % (4.4-11.3); NEUTROPHILS # (AUTO) 15.4 (2.1-6.9); NEUTROPHILS % 93.4 % (38.7-80.0); PLATELET COUNT 127 x10e3/uL (140-360); RED BLOOD COUNT 3.64 x10e6/uL (3.6-5.1); RED CELL DISTRIBUTION WIDTH 13.2 % (11.7-14.4)
[2019-05-29 01:18] LABS: ALBUMIN 2.7 g/dL (3.5-5.0); ALBUMIN/GLOBULIN RATIO 1.2 (0.8-2.0); ANION GAP 16.5 mmol/L (8-16); POTASSIUM 3.5 mmol/L (3.5-5.1)
[2019-05-29 01:19] LABS: CALCIUM 7.3 mg/dL (8.4-10.2); CREATININE, SERUM 1.43 mg/dL (0.57-1.11)
[2019-05-29 01:29] LABS: B-TYPE NATRIURETIC PEPTIDE2 525.8 pg/mL (0-100)
[2019-05-29] MEDS: LINEZOLID 600 MG/D5W 300ML 300 ML IV SCH ×2 (01:45→14:00)
[2019-05-29] MEDS ORDERED: NOREPINEPHRINE 8 MG/D5W 250 ML 250 ML ONE (01:50)
[2019-05-29] MEDS ORDERED: FUROSEMIDE INJ 10 MG/ML 2 ML VIAL ONE (01:50)
[2019-05-29] MEDS ORDERED: FUROSEMIDE INJ 10 MG/ML 4 ML VIAL IV ONE (01:50)
--- NOTE | 2019-05-29 01:58 | NUR ---
ER MD AT PTS BEDSIDE TO DISCUSS POC; CONSENT FOR CENTRAL VENOUS CATHETER REVIEWED WITH PATIENT, ALL AGREED UPON, AND SIGNED
--- NOTE | 2019-05-29 03:03 | Diagnostic Imaging Report ---
EXAMINATION: CHEST SINGLE (PORTABLE) INDICATION: ^SOB COMPARISON: Chest CT 05/28/2019 FINDINGS: AP view TUBES and LINES: None. LUNGS: Lungs are well inflated. No consolidations. Prominent central pulmonary vasculature. PLEURA: No pleural effusion or pneumothorax. HEART AND MEDIASTINUM: The cardiomediastinal silhouette is unremarkable. Aortic arch calcifications. BONES AND SOFT TISSUES: No acute osseous lesion. Soft tissues are unremarkable. UPPER ABDOMEN: No free air under the diaphragm. IMPRESSION: Pulmonary vascular congestion. Signed by: Wei Delvalle DO on 05/29/2019 2:59 AM
--- NOTE | 2019-05-29 03:10 | NUR ---
PT STARTED ON LEVOPHED 5MCG/MIN, BP 89/57
[2019-05-29] MEDS: CEFTRIAXONE SOD 1 GM/NS 50 ML 50 ML IV SCH ×3 (03:26→17:41)
--- NOTE | 2019-05-29 04:08 | NUR ---
INCREASED LEVOPHED TO 10 MCG/MIN BP 81/59
[2019-05-29] MEDS: PIPER-TAZ 3.375 GM 50 ML IV SCH ×3 (04:21→18:19)
--- NOTE | 2019-05-29 05:36 | Diagnostic Imaging Report ---
EXAMINATION: CHEST XRAY LINE PLACEMENT INDICATION: CENTRAL LINE PLACEMENT VERIFICATION COMPARISON: Chest radiograph 05/29/2019 FINDINGS: AP view TUBES and LINES: Right IJ central venous catheter, tip in the mid SVC. LUNGS: Lungs are well inflated. Lungs are clear. There is no evidence of pneumonia or pulmonary edema. PLEURA: No pleural effusion or pneumothorax. HEART AND MEDIASTINUM: The cardiomediastinal silhouette is unremarkable. Aortic arch calcifications. BONES AND SOFT TISSUES: No acute osseous lesion. Soft tissues are unremarkable. UPPER ABDOMEN: No free air under the diaphragm. IMPRESSION: Right IJ central venous catheter, tip in the mid SVC. Pulmonary vascular congestion. Signed by: Wei Delvalle DO on 05/29/2019 5:32 AM
--- NOTE | 2019-05-29 05:44 | NUR ---
INCREASED LEVOPHED TO 15MCG/MIN BP 81/57. PT ALERT AND ORIENTED NO COMPLAINTS AT THIS TIME
[2019-05-29 05:56] LABS: BASOPHILS # (AUTO) 0.1 (0.0-0.1); BASOPHILS % 0.4 % (0.0-1.0); EOSINOPHILS % 0.1 % (0.0-6.0); HEMATOCRIT 32.5 % (34.2-44.1); HEMOGLOBIN 10.7 g/dL (12.0-16.0); LYMPHOCYTES # (AUTO) 0.4 (1.0-3.2); LYMPHOCYTES % 1.5 % (18.0-39.1); MEAN CORPUSCULAR HEMOGLOBIN 29.5 pg (28-32); MEAN CORPUSCULAR HGB CONC 32.9 g/dL (31-35); MEAN CORPUSCULAR VOLUME 89.5 fL (81-99); MONOCYTES # (AUTO) 0.9 (0.2-0.8); MONOCYTES % 3.9 % (4.4-11.3); NEUTROPHILS # (AUTO) 22.1 (2.1-6.9); NEUTROPHILS % 92.3 % (38.7-80.0); PLATELET COUNT 151 x10e3/uL (140-360); RED BLOOD COUNT 3.63 x10e6/uL (3.6-5.1); RED CELL DISTRIBUTION WIDTH 13.3 % (11.7-14.4)
[2019-05-29 06:13] LABS: ALBUMIN 2.6 g/dL (3.5-5.0); ANION GAP 15.3 mmol/L (8-16); CALCIUM 7.4 mg/dL (8.4-10.2); CREATININE, SERUM 1.56 mg/dL (0.57-1.11); POTASSIUM 3.3 mmol/L (3.5-5.1)
[2019-05-29] MEDS ORDERED: NOREPINEPHRINE INJ 4MG/4ML 8 MG in DEXTROSE 5% 250ML 250 ML IV SCH (06:30)
[2019-05-29] MEDS: SODIUM CHLORIDE 0.9% 1000ML 1,000 ML IV SCH ×2 (06:57→08:02)
--- NOTE | 2019-05-29 07:41 | NUR ---
Shantelle torres in EDM - 05/29/19 at 0804 by DELIA INCREASED LEVOPHED TO 15MCG/MIN BP 91/51. PT ALERT AND ORIENTED NO COMPLAINTS AT THIS TIME
--- NOTE | 2019-05-29 07:41 | NUR ---
INCREASED LEVOPHED TO 20MCG/MIN BP 91/51. PT ALERT AND ORIENTED NO COMPLAINTS AT THIS TIME
[2019-05-29 08:22] LABS: PLATELET ESTIMATE MODERATELY DECREASED; PLATELET MORPHOLOGY COMMENT FEW LARGE; RBC MORPHOLOGY COMMENT NORMAL
[2019-05-29] MEDS: NOREPINEPHRINE 8 MG/D5W 250 ML 250 ML IV SCH (10:19)
[2019-05-29] MEDS ORDERED: GENTAMICIN SULFATE 400 MG in SODIUM CHLORIDE 0.9% 100 ML IV ONE (12:30)
[2019-05-29] MEDS ORDERED: LIDOCAINE HCL 1% LOCAL INJ 20 ML VIAL ONE (13:58)
[2019-05-29] MEDS ORDERED: SODIUM CHLORIDE 0.9% 250ML 250 ML ONE (14:33)
[2019-05-29] MEDS ORDERED: LIDOCAINE HCL 2% LOCAL INJ 5 ML SDV VIAL INJ ONE (14:38)
[2019-05-29] MEDS ORDERED: PROPOFOL IV EMULSION 10 MG/ML 20 ML VIAL ONE (14:38)
[2019-05-29] MEDS: ACETAMINOPHEN 325 MG TAB PO PRN ×2 (15:01→15:55)
[2019-05-29] MEDS ORDERED: IOPAMIDOL 300MG/ML 100 ML INFUS..BTL IV ONE (17:00)
--- NOTE | 2019-05-29 17:55 | Consultation ---
DATE OF CONSULTATION: Critical Care Consultation REASON FOR CONSULT: Septic shock. HISTORY OF PRESENT ILLNESS: Ms. Ybarra is a 58-year-old female. She presented to the emergency room with complaints of right-sided flank pain, etfonpna-lg-[id number] in intensity, started 2 days ago, progressively got worse. It was throbbing in nature. It was radiating down her groin. She has history of kidney stones in the past. She sees Dr. Yan and was diagnosed with obstructive ureteric stone and moderate hydronephrosis. He has been consulted and he has recommended nephrostomy tube by IR, which will be done today. The patient became septic overnight, received 3 L of IV fluids, was started on IV antibiotics and Levophed. Her white cell count jumped up to 23,000. Blood cultures were positive. Identification is showing Gram variable rods. Urine culture was positive for gram-negative bacillus. The patient has been on broad-spectrum antibiotic. She is denying any chest pain. She was having some shortness of breath, felt fluid overloaded. She was given one dose of diuretic. When she came in, her creatinine was 0.87. It has gone up to 1.56. She is still in metabolic acidosis. Lactic acid this morning is still 25.1. She is on 100 mL an hour of fluid. I have reduced the fluid to 50 mL an hour. REVIEW OF SYSTEMS: GENERAL: She was having fever and chills. HEAD: Denies any head trauma. ENT: Denies any earache. CVS: Denies any chest pain. RESPIRATORY: Mild shortness of breath. The rest of the review of systems are negative except as in HPI. PAST MEDICAL HISTORY: Hypertension and nephrolithiasis. PAST SURGICAL HISTORY: , hysterectomy, and breast reduction. FAMILY AND SOCIAL HISTORY: She does not smoke. Does not drink. PHYSICAL EXAMINATION: VITAL SIGNS: Temperature 98.1, pulse of 94, blood pressure 101/69, this was on 20 mcg of Levophed. T-max of 101.2. HEENT: Head is atraumatic and normocephalic. NECK: Supple. CHEST: Crackles bilaterally in the bases. Good respiratory effort. Symmetric expansion. HEART: S1 and S2 audible. No murmurs, gallops, or rubs. ABDOMEN: Soft and nontender. EXTREMITIES: Trace pedal edema. NEUROLOGIC: Awake and alert. No focal neurologic deficit. LABORATORY DATA: Sodium 140, potassium 3.3, chloride 109, and bicarb is 16. Lactic acid went from 15.2 on 05/28 to 25.1. This morning, it was 37.2 last night. She received IV fluid and she is on vasopressors. Chest x-ray, I have reviewed the images, some pulmonary vascular congestion and central line was placed. ASSESSMENT/PLAN: Ms. Ybarra is a 58-year-old female. She is admitted to ICU for septic shock secondary to pyelonephritis, secondary to obstructive uropathy due to right-sided nephrolithiasis. She also has a right hydronephrosis. PLAN: 1. Continue the patient on IV hydration. I will reduce the fluid to 50 mL an hour. The patient appears to be fluid overloaded. 2. Continue broad-spectrum antibiotics. ID has been consulted. We will defer the choice of antibiotics to Infectious Disease consultants. 3. Urology has been consulted. The patient will get nephrostomy tube soon. 4. IV analgesics for pain control. Critical care time spent 55 minutes. MD ZULAY Leone/MILLICENT /[id number]
[2019-05-29] MEDS: HYDROMORPHONE 1MG/1ML INJ IV PRN (18:14)
[2019-05-29] MEDS ORDERED: MIDAZOLAM HCL 2 MG/2 ML VIAL ONE (18:21)
[2019-05-29] MEDS ORDERED: FENTANYL CITRATE/PF 100MCG/2 ML INJ ONE (18:21)
--- NOTE | 2019-05-29 18:43 | NUR ---
Patient arrived from ER at 1445 on levophed drip. Patient awaiting placement of R nephrostomy tube. Patient taken to the OR at 1630 and arrived back at 1730. Dr. Ellington notified of blood cultures and urine cultures growing gram negitive bacillus. Dr. Nation's paged to see if patient can have a diet order. Will continue to monitor patient.
--- NOTE | 2019-05-29 18:55 | Consultation ---
DATE OF CONSULTATION: REASON FOR CONSULTATION: Sepsis and septic shock, severe sepsis. HISTORY OF PRESENT ILLNESS: This patient, who is a very pleasant 58-year-old white female, comes into the emergency room with fever and chills, not feeling well. The patient, who has history of hypertension, nephrolithiasis, obesity, history of x2, hysterectomy, breast reduction/augmentation and tummy tuck, comes in the emergency room with fever and chills for one day, and not feeling well. She came yesterday in the morning. She was given antibiotic, however, she started to get worse overnight. She was seen by Dr. Hooper in the emergency room. She was diagnosed with renal stone. The CAT scan showed right obstructive stone with moderate hydronephrosis. She received Zosyn and Rocephin, but overnight, she became worse. Her white count went up. She became hypotensive. She was started on vasopressors. I was contacted earlier in the morning stat, reviewed the notes with the nurse taking care of her as well as with Dr. Nation, her primary care. When I did see her, the patient is currently just not feeling well, complaining of pain in the right side. She is having fever and chills, little bit of nausea and generalized weakness. PAST MEDICAL HISTORY: Hypertension, renal stone, and mild obesity. PAST SURGICAL HISTORY: , hysterectomy, breast reduction and tummy tuck. ALLERGIES: PENICILLIN, BUT SHE DOES OKAY WITH ZOSYN AND ROCEPHIN. SOCIAL HISTORY: There is no smoking, drug abuse, or alcohol abuse. 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 REVIEW OF SYSTEMS: All mentioned above. HEENT: Negative. PULMONARY: Negative. CARDIAC: Negative. : Negative. SKIN: There is no other rash. Her labs reviewed. PHYSICAL EXAMINATION: GENERAL: She is currently alert and oriented. Does not seem to be in acute distress. VITAL SIGNS: Stable, currently afebrile. HEENT: She is not icteric. NECK: Supple. CHEST: Clear. HEART: S1 and S2. No S3, S4, or murmur. ABDOMEN: Soft. Bowel sounds present. She did have right CVA tenderness. LABORATORY DATA: Her laboratory data reviewed. When she first came, white count 5.39, jumped up to 16, now it is 23.9, and hemoglobin 13. Her sodium 140, potassium 3.3, and her creatinine is 1.56. Lactic acid on admission 15.2, went up to 37, came down to 25. Albumin of 2.7. Her urine culture showing gram-negative rods. Her blood cultures showing gram-negative rods. IMPRESSION: 1. Septic shock in the patient secondary to gram-negative bacteremia and sepsis, pyelonephritis. Continue with Zosyn at 3.375 IV q.6. We will give one dose of gentamicin 400, IV fluid and supportive care. She is going to ICU. She also going for nephrostomy. I think that will help her. 2. Acute kidney injury secondary to sepsis. 3. Other medical problems as above. Discussed with the patient at length. Discussed with the medical team at length. Thank you for asking me to see this patient. Time spent one hour. MD OXANA Kaiser/MILLICENT /[id number]
--- NOTE | 2019-05-29 19:00 | Consultation ---
DATE OF CONSULTATION: 05/28/2019 Urology Consultation Consultation is called by Dr. Jose E Hooper. CHIEF COMPLAINT AND REASON FOR CONSULTATION: Ureteral stone. HISTORY OF PRESENT ILLNESS: Ms. Ybarra is a 58-year-old female patient of mine admitted to the hospital with acute right-sided sharp, severe right flank pain. No current fevers. No chills. PAST MEDICAL HISTORY: Notable for hypertension, abdominal aortic aneurysm, , breast reduction surgery, and abdominoplasty. MEDICATIONS: Please see MAR. ALLERGIES: PENICILLIN, SULFA, VANCOMYCIN, MINOCYCLINE, AND CODEINE. SOCIAL HISTORY: No smoking or drinking. FAMILY HISTORY: Denied urologic stones or malignancies. REVIEW OF SYSTEMS: Noncontributory, other than problems mentioned above for 12-organ systems. PHYSICAL EXAMINATION: GENERAL: Middle-aged female, in no acute distress. VITAL SIGNS: Currently, she is afebrile. Stable vital signs. HEENT: Sclerae anicteric. NECK: Supple. BACK: With right-sided costovertebral angle tenderness. ABDOMEN: Soft. It is nontender. It is nondistended. No palpable mass. No palpable hernias. No palpable lymphadenopathy. : Normal female external genitalia. EXTREMITIES: Without edema. NEUROLOGIC: Moves all 4 extremities. PSYCH: Alert and mood appropriate. SKIN: Intact. Normal color. PERTINENT LABORATORY DATA: CT scan revealing a 10 x 6 mm right proximal ureteral stone with right hydronephrosis. Urinalysis; 6-10 whites, 6-10 reds, positive protein. BMP normal except for glucose 139. IMPRESSION: 1. Right ureteral calculus. 2. Right hydronephrosis. 3. Urinary tract infection. 4. Microscopic hematuria. 5. Renal colic. PLAN: The patient was eating while I was present in the room with the patient's daughter and the nurse. We explained the patient the options, alternatives, risks, and benefits of infection. Recommended stent placement. should the patient decompensate or need further issues quicker, she may need a nephrostomy tube. Urine culture has been sent by the emergency room. She has been begun on broad-spectrum antibiotics, agree with. Thank you for allowing me to participate in the care of your patient. We will be happy to follow along with you. MD ISAAC Snow/MODL /[id number] cc: MD Jose E Park MD
[2019-05-30] VITALS (23 sets, daily range): BP systolic 100–126; BP diastolic 58–93
[2019-05-30] MEDS: HYDROMORPHONE 1MG/1ML INJ IV PRN ×2 (00:14→04:20)
[2019-05-30] MEDS: LINEZOLID 600 MG/D5W 300ML 300 ML IV SCH (02:00)
[2019-05-30] MEDS: PIPER-TAZ 3.375 GM 50 ML IV SCH ×3 (02:30→17:17)
[2019-05-30] MEDS: CEFTRIAXONE SOD 1 GM/NS 50 ML 50 ML IV SCH (03:55)
[2019-05-30] MEDS: NOREPINEPHRINE 8 MG/D5W 250 ML 250 ML IV SCH (04:09)
[2019-05-30 05:14] LABS: BASOPHILS # (AUTO) 0.2 (0.0-0.1); BASOPHILS % 0.7 % (0.0-1.0); HEMOGLOBIN 10.4 g/dL (12.0-16.0); LYMPHOCYTES # (AUTO) 0.7 (1.0-3.2); LYMPHOCYTES % 2.7 % (18.0-39.1); MEAN CORPUSCULAR HEMOGLOBIN 29.4 pg (28-32); MEAN CORPUSCULAR HGB CONC 32.5 g/dL (31-35); MEAN CORPUSCULAR VOLUME 90.4 fL (81-99); MONOCYTES # (AUTO) 1.2 (0.2-0.8); MONOCYTES % 4.7 % (4.4-11.3); NEUTROPHILS # (AUTO) 20.3 (2.1-6.9); NEUTROPHILS % 79.5 % (38.7-80.0); PLATELET COUNT 118 x10e3/uL (140-360); RED BLOOD COUNT 3.54 x10e6/uL (3.6-5.1); RED CELL DISTRIBUTION WIDTH 13.7 % (11.7-14.4)
[2019-05-30 05:30] LABS: ANION GAP 10.6 mmol/L (8-16); BLOOD UREA NITROGEN 17 mg/dL (7-26); BUN/CREATININE RATIO 20 (6-25); CALCIUM 8.3 mg/dL (8.4-10.2); CARBON DIOXIDE 23 mmol/L (22-29); CHLORIDE 110 mmol/L (98-107); CREATININE, SERUM 0.86 mg/dL (0.57-1.11); EST GLOMERULAR FILTRATION RATE > 60 ML/MIN (60-); GLUCOSE 136 mg/dL (74-118); MAGNESIUM 1.5 MG/DL (1.3-2.1); PHOSPHORUS 2.7 MG/DL (2.3-4.7); POTASSIUM 3.6 mmol/L (3.5-5.1); SODIUM 140 mmol/L (136-145)
[2019-05-30 06:31] LABS: BAND NEUTROPHILS % (MANUAL) 12 %; LYMPHOCYTES % (MANUAL) 5 % (19-48); MONOCYTES % (MANUAL) 3 % (3.4-9.0); NEUTROPHILS % (MANUAL) 80 % (40-74)
[2019-05-30 06:32] LABS: PLATELET ESTIMATE SLIGHTLY DECREASED; PLATELET MORPHOLOGY COMMENT NORMAL; RBC MORPHOLOGY COMMENT NORMAL
[2019-05-30] MEDS ORDERED: MAGNESIUM/ALUMINUM/SIMETHICONE 30 ML UDC PO PRN (08:30)
[2019-05-30] MEDS ORDERED: PANTOPRAZOLE SOD 40 MG TABEC PO SCH (08:30)
[2019-05-30] MEDS ORDERED: PANTOPRAZOLE SOD 40 MG TABEC ONE (08:38)
--- NOTE | 2019-05-30 08:54 | Diagnostic Imaging Report ---
PROCEDURE: Genitourinary catheter placement Procedural Personnel Attending physician(s): Bob Stanford MD Fellow physician(s): None Resident physician(s): None Advanced practice provider(s): None Pre-procedure diagnosis: Sepsis, ureteral obstruction, right hydronephrosis Post-procedure diagnosis: Same Indication: Urinary obstruction Catheter(s) placed because the previous catheter(s) became dislodged within 30 days of placement (QCDR): No Additional clinical history: None Complications: No immediate complications. IMPRESSION: Right nephrostomy tube placement. Plan: Maintain tube to gravity drainage and track output. PROCEDURE SUMMARY - Target organ: Unilateral three affiliated kidney - Image-guided placement of genitourinary catheter(s) - Additional procedure(s): None PROCEDURE DETAILS: Pre-procedure Consent: Informed consent for the procedure including risks, benefits and alternatives was obtained and time-out was performed prior to the procedure. Preparation: The site was prepared and draped using maximal sterile barrier technique including cutaneous antisepsis. Anesthesia/sedation Level of anesthesia/sedation: Monitored anesthesia care Anesthesia/sedation administered by: Anesthesiology Right genitourinary catheter placement Local anesthesia was administered. A needle was advanced into the renal collecting system under ultrasound and fluoroscopy guidance. A wire was advanced, the tract was serially dilated and a nephrostomy tube was placed . Contrast injection was performed. Genitourinary catheter placed: 10Fr Uresil nephrostomy catheter Findings: Catheter loop formed in renal pelvis External catheter securement: Non-absorbable suture Additional genitourinary system intervention Genitourinary intervention: None Location of intervention: Not applicable Device used: Not applicable Description of intervention: Not applicable Post-intervention findings: Not applicable Contrast Contrast agent: Isovue 370 Contrast volume (mL): 10cc Radiation Dose Fluoroscopy time (minutes): 2.4 Reference air kerma (mGy): 24.9 Additional Details Additional description of procedure: None Equipment details: None Specimens removed: None. A sample was sent for analysis. Estimated blood loss (mL): Less than 10 Standardized report: [id number] Attestation Signer name: Bob Stanford MD I attest that I was present for the entire procedure. I reviewed the stored images and agree with the report as written. Signed by: Bob Stanford MD on 05/30/2019 8:50 AM
[2019-05-30] MEDS: PROMETHAZINE 12.5MG/ NACL 0.9% 50 ML IV PRN ×2 (08:55→15:08)
[2019-05-30] MEDS ORDERED: VASOPRESSIN 100 UNIT in DEXTROSE 5% 100ML 100 ML IV PRN (09:00)
[2019-05-30] MEDS ORDERED: OXYCODONE/ACETAMINOPHEN 5-325 1 EACH TABLET PO PRN (09:15)
--- NOTE | 2019-05-30 11:10 | Diagnostic Imaging Report ---
EXAMINATION: CHEST SINGLE (PORTABLE) INDICATION: Shortness of breath COMPARISON: Chest radiographs of 05/29/2019 FINDINGS: LINES/TUBES:Right IJ central venous catheter terminates in the superior vena cava. EKG leads overlie the chest. LUNGS:The lungs are moderately inflated. There is perihilar fullness and indistinctness of the pulmonary vasculature. PLEURA:No pleural effusion or pneumothorax. MEDIASTINUM:The cardiomediastinal silhouette appears unchanged in size and shape. BONES/SOFT TISSUES:No acute osseous injury. ABDOMEN:No free air under the diaphragm. IMPRESSION: Mild interval in pulmonary edema. Signed by: Bob Stanford MD on 05/30/2019 11:07 AM
[2019-05-30] MEDS ORDERED: FUROSEMIDE INJ 10 MG/ML 2 ML VIAL IV ONE (14:00)
[2019-05-30] MEDS: ALBUTEROL/IPRATROPIUM 3 ML NEB NEB SCH ×2 (14:10→19:00)
[2019-05-30] MEDS: PANTOPRAZOLE 40 MG 10ML VIAL IV SCH (16:44)
[2019-05-30] MEDS ORDERED: ENOXAPARIN 30 MG/0.3 ML SYR SC SCH (17:00)
[2019-05-31] VITALS (25 sets, daily range): BP systolic 90–131; BP diastolic 50–86
[2019-05-31] MEDS: ALBUTEROL/IPRATROPIUM 3 ML NEB NEB SCH ×3 (01:00→13:00)
[2019-05-31] MEDS: ACETAMINOPHEN 325 MG TAB PO PRN (02:00)
[2019-05-31] MEDS: PIPER-TAZ 3.375 GM 50 ML IV SCH ×2 (02:44→10:40)
--- NOTE | 2019-05-31 03:15 | Diagnostic Imaging Report ---
EXAMINATION: CHEST SINGLE (PORTABLE) INDICATION: Sudden bradycardia. COMPARISON: Chest radiograph 05/30/2019 FINDINGS: AP view TUBES and LINES: Right IJ central venous catheter, tip in the high SVC.. LUNGS: Lungs are well inflated. Lungs are clear. There is no evidence of pneumonia or pulmonary edema. Pulmonary vascular prominence. PLEURA: No pleural effusion or pneumothorax. HEART AND MEDIASTINUM: The cardiomediastinal silhouette is unremarkable. BONES AND SOFT TISSUES: No acute osseous lesion. Soft tissues are unremarkable. UPPER ABDOMEN: No free air under the diaphragm. IMPRESSION: Right IJ central venous catheter, tip in the high SVC.. Pulmonary vascular congestion. Signed by: Wei Delvalle DO on 05/31/2019 3:11 AM
[2019-05-31 05:17] LABS: BASOPHILS # (AUTO) 0.1 (0.0-0.1); BASOPHILS % 0.4 % (0.0-1.0); EOSINOPHILS % 0.1 % (0.0-6.0); HEMATOCRIT 29.6 % (34.2-44.1); HEMOGLOBIN 9.6 g/dL (12.0-16.0); LYMPHOCYTES # (AUTO) 0.9 (1.0-3.2); MEAN CORPUSCULAR HEMOGLOBIN 29.1 pg (28-32); MEAN CORPUSCULAR HGB CONC 32.4 g/dL (31-35); MEAN CORPUSCULAR VOLUME 89.7 fL (81-99); MONOCYTES # (AUTO) 0.6 (0.2-0.8); NEUTROPHILS # (AUTO) 19.5 (2.1-6.9); NEUTROPHILS % 91.9 % (38.7-80.0); PLATELET COUNT 95 x10e3/uL (140-360); RED CELL DISTRIBUTION WIDTH 13.7 % (11.7-14.4)
[2019-05-31 05:46] LABS: CREATINE KINASE MB 5.2 ng/mL (0-5.0)
[2019-05-31 06:09] LABS: ALANINE AMINOTRANSFERASE 14 IU/L (0-55); ALBUMIN 2.4 g/dL (3.5-5.0); ALBUMIN/GLOBULIN RATIO 0.8 (0.8-2.0); ALKALINE PHOSPHATASE 74 IU/L (40-150); ANION GAP 11.4 mmol/L (8-16); BLOOD UREA NITROGEN 19 mg/dL (7-26); BUN/CREATININE RATIO 26 (6-25); CALCIUM 8.5 mg/dL (8.4-10.2); CARBON DIOXIDE 27 mmol/L (22-29); CHLORIDE 106 mmol/L (98-107); CREATININE, SERUM 0.72 mg/dL (0.57-1.11); EST GLOMERULAR FILTRATION RATE > 60 ML/MIN (60-); GLUCOSE 73 mg/dL (74-118); POTASSIUM 3.4 mmol/L (3.5-5.1); SODIUM 141 mmol/L (136-145)
[2019-05-31] MEDS: NOREPINEPHRINE 8 MG/D5W 250 ML 250 ML IV SCH ×2 (06:45→20:44)
[2019-05-31] MEDS: PANTOPRAZOLE 40 MG 10ML VIAL IV SCH ×2 (08:30→16:17)
[2019-05-31] MEDS ORDERED: POTASSIUM CHLORIDE 20 MEQ TAB CR PO ONE (09:00)
[2019-05-31] MEDS ORDERED: FUROSEMIDE INJ 10 MG/ML 2 ML VIAL IV ONE (09:00)
--- NOTE | 2019-05-31 09:52 | NUR ---
CONSULTS CALLED FOR DR. JAMES AND AT THIS TIME
[2019-05-31 11:48] LABS: PLATELET ESTIMATE MARKEDLY DECREASED
[2019-05-31 11:49] LABS: PLATELET MORPHOLOGY COMMENT FEW LARGE; RBC MORPHOLOGY COMMENT NORMAL
[2019-05-31] MEDS ORDERED: MEROPENEM 500MG/ NS 50ML 50 ML IV SCH (12:00)
--- NOTE | 2019-05-31 12:59 | Consultation ---
DATE OF CONSULTATION: 05/31/2019 REASON FOR CONSULTATION: Elevated troponin. CHIEF COMPLAINT: Right flank pain. HISTORY OF PRESENT ILLNESS: This is a 58-year-old female with history of hypertension and kidney stones. The patient presents to hospital with right-sided flank pain, was noted with obstructive ureter stone and moderate hydronephrosis, underwent right nephrostomy tube by IR. However, the patient had became septic and went into septic shock, was on Levophed drip for blood pressure support. Labs were noted; urine culture is positive for E. coli, blood culture positive for E. coli; subsequently, the patient was weaned off pressure therapy, however, last night apparently during a right IJ dressing change heart rate dropped into the 40s for 1 minute. EKG was done, showing sinus isabell, heart rate 51, no changes suggestive of acute event. Cardiology was consulted, secondary to noted troponin 0.1, and heart rate bradycardia. The patient is seen in room, no acute distress. Denies any chest pain, any shortness of breath, any lightheadedness, or dizziness. Actually, states feels much better since admission. PAST MEDICAL HISTORY: 1. Hypertension. 2. Ureter stones. PAST SURGICAL HISTORY: 1. . 2. Hysterectomy. 3. Breast reduction surgery. FAMILY HISTORY: Mother is alive, history of hypertension. Father is , history of CAD, hypertension, and renal cancer. SOCIAL HISTORY: She is a . 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 Occasional alcohol use. Denies any tobacco use. HOME MEDICATIONS: Irbesartan 75 mg once daily. ALLERGIES: PENICILLIN, SULFA, CODEINE, MINOCYCLINE, AND VANCOMYCIN. REVIEW OF SYSTEMS: GENERAL: Denies any weight change, fatigue. Positive for fevers, chills, night sweats prior to admission. SKIN: No rash or sores. HEENT: No nausea, vomiting, blurred vision, double vision, earaches, epistaxis, sore throat, or swollen neck. CARDIAC: Denies any chest pain, palpitations, any orthopnea, PND, or lower extremity edema. Positive for dyspnea on exertion. RESPIRATORY: Denies any shortness of breath, wheezing, coughing, or hemoptysis. GI: Reports good appetite. Denies any nausea, vomiting, diarrhea, constipation, hematochezia, or melena. URINARY: Positive for frequency, urgency, or dysuria and prior to admission. VASCULAR: Denies any lower extremity edema or claudication. MUSCULOSKELETAL: Generalized joint pains and back pains. NEUROLOGIC: Denies any tremors, tingling, numbness, paralysis, fainting, blackout, or seizures. HEMATOLOGY: Denies any anemia or bruising. ENDOCRINE: Denies heat or cold intolerance. No polyuria, polydipsia, or polyphagia. PHYSICAL EXAMINATION: GENERAL: Appears stated age, reliable informant, in no acute distress. SKIN: No rashes or bruises noted. Does have a right IJ triple-lumen catheter. HEENT: Normocephalic. Pupils equal, reactive. Extraocular movements intact. Trachea midline. No JVD. No carotid bruits. Right IJ triple-lumen catheter. HEART: Regular rate and rhythm. No murmurs, clicks, or gallops. PMI about 4th and 5th intercostal space. LUNGS: Bilateral breath sounds. Clear to auscultation. Good airway entry. ABDOMEN: Soft, nontender, nondistended. : Does have a right flank nephrostomy tube with clear yellow urine, also has a Garcia to gravity with clear yellow urine. MUSCULOSKELETAL: Good muscle strength throughout. No lower extremity swelling noted. VASCULAR: +2 bilateral pulses, +2 DP and PT pulses bilaterally. NEUROLOGIC: Cranial nerves II through XII seem intact. LABORATORY DATA: White count 21.4, hemoglobin of 9, hematocrit of 29, and platelets 95. Chemistry; sodium 141, potassium 3.4, chloride 106, bicarb 27, BUN 19, creatinine 0.2. Lactic acid 25. Troponin initially less than 0.001, next 0.9. The urine culture on May 29, 2019 with E. coli and blood culture on May 28 show an E. coli. IMAGING DATA: CT of abdomen on May 28 showing obstructive 6 mm ureteral calculus with a right hydronephrosis. EKG showing sinus isabell, heart rate 51. ASSESSMENT AND PLAN: 1. Septic shock, pyelonephritis/bacteremia with Escherichia coli. 2. Obstructive ureter stone, status post right urostomy. 3. Bradycardia, secondary to vasovagal/carotid manipulation. 4. Thrombocytopenia. 5. Demand myocardial infarction, type 2. PLAN: 1. The patient presents with urosepsis/bacteremia with obstructive ureter stone, status post urostomy tube. 2. Antibiotics as per ID. Elevated troponin, secondary to demand type 2. 3. We will do an echo, will be read by Cardiology attending. 4. Regarding bradycardia, most likely secondary to vasovagal/carotid manipulations during dressing change. 5. We will do a TSH. 6. Continue telemonitoring. Thank you very much for this consult. Further recommendations as clinical course. Dictated by Lucas Hook NP Traci Allen MD [facility]ENT /[id number]
[2019-05-31] MEDS: CEFAZOLIN SOD 2 GM/D5W 50ML 50 ML IV SCH (17:20)
--- NOTE | 2019-05-31 19:00 | NUR ---
Report received. Assumed care. Assessment done. See interventions.
[2019-05-31] MEDS: MORPHINE SULFATE INJ 4 MG/ML INJ 1ML IV PRN (21:35)
[2019-05-31] MEDS ORDERED: CEFAZOLIN SOD 1 GM VIAL IV SCH (22:00)
[2019-06-01] VITALS (17 sets, daily range): BP systolic 97–131; BP diastolic 50–80
--- NOTE | 2019-06-01 03:30 | NUR ---
c/o wheezing. Refused resp tx earlier in the night. Encouraged to take a tx now. Resp called & treatment given.
[2019-06-01 05:23] LABS: BASOPHILS # (AUTO) 0.1 (0.0-0.1); BASOPHILS % 0.5 % (0.0-1.0); EOSINOPHILS # (AUTO) 0.3 (0.0-0.4); EOSINOPHILS % 2.1 % (0.0-6.0); HEMATOCRIT 31.3 % (34.2-44.1); HEMOGLOBIN 10.2 g/dL (12.0-16.0); LYMPHOCYTES # (AUTO) 0.9 (1.0-3.2); LYMPHOCYTES % 7.3 % (18.0-39.1); MEAN CORPUSCULAR HEMOGLOBIN 29.1 pg (28-32); MEAN CORPUSCULAR HGB CONC 32.6 g/dL (31-35); MEAN CORPUSCULAR VOLUME 89.2 fL (81-99); MONOCYTES # (AUTO) 0.5 (0.2-0.8); MONOCYTES % 3.8 % (4.4-11.3); NEUTROPHILS # (AUTO) 10.6 (2.1-6.9); NEUTROPHILS % 85.7 % (38.7-80.0); PLATELET COUNT 107 x10e3/uL (140-360); RED BLOOD COUNT 3.51 x10e6/uL (3.6-5.1); RED CELL DISTRIBUTION WIDTH 13.2 % (11.7-14.4)
[2019-06-01 05:57] LABS: CHOL/HDL RATIO 6.1 (3.0-3.6)
[2019-06-01 06:05] LABS: THYROID STIMULATING HORMONE 3.807 uIU/mL (0.350-4.940)
[2019-06-01 06:32] LABS: ALANINE AMINOTRANSFERASE 13 IU/L (0-55); ALBUMIN 2.5 g/dL (3.5-5.0); ALBUMIN/GLOBULIN RATIO 0.9 (0.8-2.0); ALKALINE PHOSPHATASE 95 IU/L (40-150); ANION GAP 9.9 mmol/L (8-16); BLOOD UREA NITROGEN 15 mg/dL (7-26); BUN/CREATININE RATIO 22 (6-25); CALCIUM 8.4 mg/dL (8.4-10.2); CARBON DIOXIDE 30 mmol/L (22-29); CHLORIDE 103 mmol/L (98-107); CREATININE, SERUM 0.68 mg/dL (0.57-1.11); EST GLOMERULAR FILTRATION RATE > 60 ML/MIN (60-); GLUCOSE 98 mg/dL (74-118); SODIUM 140 mmol/L (136-145)
[2019-06-01 06:36] LABS: POTASSIUM 2.9 mmol/L (3.5-5.1)
[2019-06-01] MEDS: ALBUTEROL/IPRATROPIUM 3 ML NEB NEB SCH ×3 (07:23→19:45)
[2019-06-01 07:24] LABS: BAND NEUTROPHILS % (MANUAL) 1 %; EOSINOPHILS % (MANUAL) 2 % (0-7); LYMPHOCYTES % (MANUAL) 2 % (19-48); MONOCYTES % (MANUAL) 3 % (3.4-9.0); NEUTROPHILS % (MANUAL) 92 % (40-74); PLATELET ESTIMATE SLIGHTLY DECREASED; PLATELET MORPHOLOGY COMMENT NORMAL; RBC MORPHOLOGY COMMENT NORMAL
[2019-06-01] MEDS ORDERED: POTASSIUM CHLORIDE 20MEQ/100ML 200 ML IV ONE (07:45)
[2019-06-01] MEDS: PANTOPRAZOLE 40 MG 10ML VIAL IV SCH ×2 (08:34→17:28)
[2019-06-01] MEDS: CEFAZOLIN SOD 2 GM/D5W 50ML 50 ML IV SCH ×3 (08:34→15:05)
[2019-06-01 15:23] LABS: ANION GAP 9.3 mmol/L (8-16); BLOOD UREA NITROGEN 11 mg/dL (7-26); BUN/CREATININE RATIO 17 (6-25); CALCIUM 8.4 mg/dL (8.4-10.2); CARBON DIOXIDE 29 mmol/L (22-29); CHLORIDE 105 mmol/L (98-107); CREATININE, SERUM 0.66 mg/dL (0.57-1.11); EST GLOMERULAR FILTRATION RATE > 60 ML/MIN (60-); GLUCOSE 149 mg/dL (74-118); POTASSIUM 3.3 mmol/L (3.5-5.1); SODIUM 140 mmol/L (136-145)
--- NOTE | 2019-06-01 15:30 | NUR ---
Dr. Nation gave orders to transfer pt to medical surgical floor with telemetry. Cardiology rounded on pt due to increased troponin levels. No new orders. Patient asking if otero can be removed and what plan is surgically. Dr. Yan paged and informed. stated Otero catheter can be removed now, and that patient will need antibiotics for about 2 weeks longer before that is an option. Pt was informed of 's statement. Otero removed at 1200, due to void at 1800. Patient voided 200ml at 1500. Patient walked with physical therapy in hallways today. Report given and patient transferred to room 291, no s/s of distress noted.
--- NOTE | 2019-06-01 16:10 | NUR ---
RECEIVED PT FROM ICU VIA WHEELCHAIR. PT IN STABLE CONDITION, NO S/S OF DISTRESS. PT IS ALERT AND SITTING UP IN BED. ORIENTED TO ROOM, CALL LIGHT. PT HAS NO COMPLAINTS OF PAIN BUT DESCRIBES FEELING WEAK
[2019-06-01] MEDS: ENOXAPARIN 30 MG/0.3 ML SYR SC SCH (17:28)
--- NOTE | 2019-06-01 20:20 | NUR ---
PATIENT IS IN STABLE CONDITION, NO SIGNS OF DISTRESS NOTED. FAMILY MEMBER AT BEDSIDE AND PATIENT VOICED SLIGHT PAIN. NEPHROSTOMY TUBE IS INTACT AND PATENT, BED IS LOCKED AND LOW, CALL LIGHT WITHIN EASY REACH,WILL CONTINUE TO MONITOR.
--- NOTE | 2019-06-01 22:30 | NUR ---
PATIENT VOICED THAT SHE FELT SLIGHTLY SHORT OF BREATH AND REQUESTED FOR HER O2 SAT TO BE READ. HER O2 SAT WAS BETWEEN 89-91 ON ROOM AIR. NASAL O2 CANNULA WAS PLACED ON PATIENT AND SHE VOICED THAT SHE IS BREATHING BETTER. WILL CONTINUE TO MONITOR.
[2019-06-01] MEDS: MORPHINE SULFATE INJ 4 MG/ML INJ 1ML IV PRN (23:00)
[2019-06-02] VITALS (8 sets, daily range): BP systolic 120–134; BP diastolic 61–86
[2019-06-02] MEDS: ALBUTEROL/IPRATROPIUM 3 ML NEB NEB SCH ×4 (01:30→19:15)
[2019-06-02 06:14] LABS: BASOPHILS % 0.5 % (0.0-1.0); EOSINOPHILS # (AUTO) 0.4 (0.0-0.4); EOSINOPHILS % 6.9 % (0.0-6.0); HEMOGLOBIN 10.6 g/dL (12.0-16.0); LYMPHOCYTES % 15.5 % (18.0-39.1); MEAN CORPUSCULAR HEMOGLOBIN 29.3 pg (28-32); MEAN CORPUSCULAR HGB CONC 33.1 g/dL (31-35); MEAN CORPUSCULAR VOLUME 88.4 fL (81-99); MONOCYTES # (AUTO) 0.7 (0.2-0.8); MONOCYTES % 11.1 % (4.4-11.3); NEUTROPHILS # (AUTO) 3.8 (2.1-6.9); NEUTROPHILS % 62.6 % (38.7-80.0); PLATELET COUNT 132 x10e3/uL (140-360); RED BLOOD COUNT 3.62 x10e6/uL (3.6-5.1); RED CELL DISTRIBUTION WIDTH 13.1 % (11.7-14.4)
[2019-06-02 06:33] LABS: ANION GAP 11.2 mmol/L (8-16); BLOOD UREA NITROGEN 8 mg/dL (7-26); BUN/CREATININE RATIO 12 (6-25); CALCIUM 8.5 mg/dL (8.4-10.2); CARBON DIOXIDE 29 mmol/L (22-29); CHLORIDE 106 mmol/L (98-107); CREATININE, SERUM 0.67 mg/dL (0.57-1.11); EST GLOMERULAR FILTRATION RATE > 60 ML/MIN (60-); GLUCOSE 84 mg/dL (74-118); POTASSIUM 3.2 mmol/L (3.5-5.1); SODIUM 143 mmol/L (136-145)
--- NOTE | 2019-06-02 07:03 | NUR ---
RECEIVED REPORT FROM OFF GOING NURSE. WALKING ROUNDS DONE. PATIENT IS RESTING IN BED. RESPIRATIONS EVEN AND UNLABORED. NO ACUTE DISTRESS NOTED. CALL LIGHT WITHIN REACH. BED IN THE LOWEST POSITION.
[2019-06-02] MEDS ORDERED: POTASSIUM CHLORIDE 20 MEQ TAB CR PO STA (07:24)
--- NOTE | 2019-06-02 08:50 | Diagnostic Imaging Report ---
EXAMINATION: CHEST SINGLE (PORTABLE) INDICATION: ^COUGH ^[id number] ^0830 COMPARISON: Chest radiograph 05/31/2019 FINDINGS: AP view TUBES and LINES: Unchanged right IJ central venous catheter with tip overlying the high/mid SVC. LUNGS: Lungs are well inflated. Stable pulmonary vascular congestion. Minimal atelectasis in both lung bases. PLEURA: No pleural effusion or pneumothorax. HEART AND MEDIASTINUM: Stable mild enlargement of the cardiac silhouette. BONES AND SOFT TISSUES: No acute osseous lesion. Soft tissues are unremarkable. UPPER ABDOMEN: No free air under the diaphragm. IMPRESSION: Persistent bilateral central pulmonary vascular congestion. Signed by: Dr. Maddison Torres M.D. on 06/02/2019 8:46 AM
[2019-06-02] MEDS: PANTOPRAZOLE 40 MG 10ML VIAL IV SCH ×2 (09:03→16:18)
[2019-06-02] MEDS: CEFAZOLIN SOD 2 GM/D5W 50ML 50 ML IV SCH ×3 (09:07→16:18)
[2019-06-02] MEDS ORDERED: FUROSEMIDE 20 MG TAB PO NR ×2 (12:45→17:00)
[2019-06-02] MEDS: POTASSIUM CHLORIDE 20 MEQ TAB CR PO SCH ×4 (13:52→20:00)
--- NOTE | 2019-06-02 14:58 | NUR ---
PICC NURSE UNABLE TO PLACE PICC, PER JAC CHRISTENSEN OK TO GET MIDLINE.
[2019-06-02] MEDS: ENOXAPARIN 30 MG/0.3 ML SYR SC SCH (16:18)
--- NOTE | 2019-06-02 16:48 | NUR ---
Nutrition Screen Note RD Recommendation for Physician: 1.Continue with current diet as medically appropriate Plan of Care: RD following, monitoring for tolerance and adequacy Nutrition reason for involvement: LOS Primary Diagnose(s): Ureteral obstruction PMH: HTN and kidney stones Ht: 61in Wt: 142lbs BMI: 26.82kg/m2 IBW: 105lbs +/- 10% RD Assessment: (06/02) Chart reviewed. Labs and meds reviewed. 58 y/o F admitted for obstructive ureter stone, now post urostomy tube. Per pt, eating well and following a heart healthy diet at home prior to admission. Patient reported recent suboptimal intake and appetite during admission with altered taste, possibly due to current medications. Patient is currently on GI soft diet, tolerating ok. PTC shows ~75% meal consumption. Pt denied any recent N/V/D/C or any difficulties with chewing/swallowing. Reports weight has been stable with UBW of 140lbs. Discussed menu with patient, will continue to follow and monitor as needed. Current Diet: GI soft Malnutrition Evaluation (06/02) The patient does not meet criteria for a specified degree of malnutrition at this time. Will re-evaluate at follow-up as appropriate. Diet Education Needs Assessment: Diet education not indicated. Nutrition Care Level: LOW Signed: Martha Glasgow, MS, RDN, LD
--- NOTE | 2019-06-02 19:27 | NUR ---
Report given to oncoming nurse. Walking rounds done. Patient is resting in bed. No acute distress noted. Family member at bedside. Call light within reach. Bed in the lowest position.
--- NOTE | 2019-06-02 20:03 | NUR ---
RECEIVE DPT IN BED AOX3 .PT HAS RT NEPHROSTOMY TUBE .PT HAS RT UPPER ARM MIDLINE AND LEFT AC 20G S/L PT C/O RT ARM MIDLINE RED AND SWOLLEN .CALL LIGHT WITH IN REACH .CONTINUE TO MONITOR
[2019-06-02] MEDS: MORPHINE SULFATE INJ 4 MG/ML INJ 1ML IV PRN (21:15)
[2019-06-03] VITALS (8 sets, daily range): BP systolic 105–138; BP diastolic 64–74
[2019-06-03] MEDS: ALBUTEROL/IPRATROPIUM 3 ML NEB NEB SCH ×4 (02:10→19:15)
[2019-06-03] MEDS: MORPHINE SULFATE INJ 4 MG/ML INJ 1ML IV PRN (05:18)
--- NOTE | 2019-06-03 06:58 | NUR ---
RECEIVED PATIENT RESTING IN BED. NO ACUTE DISTRESS NOTED. PATIENT C/O PAIN AT MIDLINE SITE. CALL LIGHT WITHIN REACH. BED IN THE LOWEST POSITION.
[2019-06-03] MEDS: ACETAMINOPHEN 325 MG TAB PO PRN (07:13)
--- NOTE | 2019-06-03 07:24 | NUR ---
PT RT UPPER ARM SWOLLEN .PT C/O PAIN .GIVEN MORPHINE .CALL LIGHT WITH IN REACH .BEDSIDE REPORT GIVEN TO THE ONCOMING NURSE
[2019-06-03 07:43] LABS: BASOPHILS # (AUTO) 0.1 (0.0-0.1); BASOPHILS % 1.1 % (0.0-1.0); EOSINOPHILS # (AUTO) 0.4 (0.0-0.4); EOSINOPHILS % 6.2 % (0.0-6.0); HEMATOCRIT 34.5 % (34.2-44.1); HEMOGLOBIN 11.6 g/dL (12.0-16.0); LYMPHOCYTES # (AUTO) 1.3 (1.0-3.2); MEAN CORPUSCULAR HEMOGLOBIN 29.6 pg (28-32); MEAN CORPUSCULAR HGB CONC 33.6 g/dL (31-35); MONOCYTES # (AUTO) 0.9 (0.2-0.8); MONOCYTES % 14.1 % (4.4-11.3); NEUTROPHILS # (AUTO) 3.1 (2.1-6.9); NEUTROPHILS % 50.1 % (38.7-80.0); PLATELET COUNT 147 x10e3/uL (140-360); RED BLOOD COUNT 3.92 x10e6/uL (3.6-5.1); RED CELL DISTRIBUTION WIDTH 13.2 % (11.7-14.4)
[2019-06-03 07:58] LABS: ALANINE AMINOTRANSFERASE 65 IU/L (0-55); ALBUMIN/GLOBULIN RATIO 0.9 (0.8-2.0); ALKALINE PHOSPHATASE 105 IU/L (40-150); ANION GAP 11.8 mmol/L (8-16); BLOOD UREA NITROGEN 6 mg/dL (7-26); BUN/CREATININE RATIO 9 (6-25); CALCIUM 9.2 mg/dL (8.4-10.2); CARBON DIOXIDE 27 mmol/L (22-29); CHLORIDE 103 mmol/L (98-107); CREATININE, SERUM 0.64 mg/dL (0.57-1.11); EST GLOMERULAR FILTRATION RATE > 60 ML/MIN (60-); GLUCOSE 110 mg/dL (74-118); POTASSIUM 3.8 mmol/L (3.5-5.1); SODIUM 138 mmol/L (136-145)
[2019-06-03 08:22] LABS: THYROID STIMULATING HORMONE 4.085 uIU/mL (0.350-4.940)
[2019-06-03] MEDS: PANTOPRAZOLE 40 MG 10ML VIAL IV SCH (08:28)
[2019-06-03] MEDS: CEFAZOLIN SOD 2 GM/D5W 50ML 50 ML IV SCH ×4 (08:28→23:23)
--- NOTE | 2019-06-03 08:30 | NUR ---
AL SYSTEM ARCHIVE ANALYST ROUNDING ON PATIENT. PATIENT C/O PAIN AT MIDLINE SITE. PER AL OK TO DC LINE.
--- NOTE | 2019-06-03 09:20 | NUR ---
MIDLINE TO RIGHT UPPER ARM DC WITH TIP INTACT, PRESSURE APPLIED TO SITE, NO BLEEDING NOTED. PRESSURE DRESSING APPLIED.
[2019-06-03] MEDS ORDERED: FUROSEMIDE INJ 10 MG/ML 2 ML VIAL IV NR (09:30)
[2019-06-03] MEDS: ENOXAPARIN 30 MG/0.3 ML SYR SC SCH (17:15)
--- NOTE | 2019-06-03 17:48 | NUR ---
PATIENT C/O RASH ON UPPER BACK AND ITCHING. PAGED DR. BRITTON FOR ORDERS.
[2019-06-03] MEDS ORDERED: DIPHENHYDRAMINE HCL 25 MG CAP PO PRN (18:30)
--- NOTE | 2019-06-03 21:00 | NUR ---
PATIENT IS IN STABLE CONDITION, NO SIGNS OF RESPIRATORY DISTRESS NOTED. PATIENT VOICES PAIN AT 4 AND SAID THAT SHE DID NOT REQUIRE MEDICATION AT THIS TIME. NEPHROSTOMY TUBE IS INTACT AND PATENT, BED IS LOCKED AND LOW, CALL LIGHT WITHIN EASY REACH,WILL CONTINUE TO MONITOR.
[2019-06-04] VITALS: BP 138/86
[2019-06-04] MEDS: ALBUTEROL/IPRATROPIUM 3 ML NEB NEB SCH ×3 (02:30→13:00)
[2019-06-04] MEDS: MORPHINE SULFATE INJ 4 MG/ML INJ 1ML IV PRN (02:32)
[2019-06-04 04:00] VITALS: BP 106/66
[2019-06-04 06:41] LABS: BLOOD UREA NITROGEN 8 mg/dL (7-26); BUN/CREATININE RATIO 10 (6-25); CALCIUM 9.5 mg/dL (8.4-10.2); CARBON DIOXIDE 30 mmol/L (22-29); CHLORIDE 100 mmol/L (98-107); CREATININE, SERUM 0.78 mg/dL (0.57-1.11); EST GLOMERULAR FILTRATION RATE > 60 ML/MIN (60-); GLUCOSE 95 mg/dL (74-118); SODIUM 139 mmol/L (136-145)
[2019-06-04] MEDS ORDERED: PANTOPRAZOLE SOD 40 MG TABEC PO SCH (07:30)
[2019-06-04 07:36] VITALS: BP 122/73
[2019-06-04 08:05] VITALS: BP 122/73
[2019-06-04] MEDS: ACETAMINOPHEN 325 MG TAB PO PRN (09:10)
[2019-06-04] MEDS: CEFAZOLIN SOD 2 GM/D5W 50ML 50 ML IV SCH (09:13)
--- NOTE | 2019-06-04 10:15 | NUR ---
Notified Dr Atkinson regarding patient refused for chest xray , that she was saying they done one day before yesterday. new order recvd to cancel the order
[2019-06-04 11:54] VITALS: BP 116/71
--- NOTE | 2019-06-04 14:05 | NUR ---
paged Dr Nation X2 to get discharge order
--- NOTE | 2019-06-04 14:40 | NUR ---
Patient discharged home, prescription given , patient aware about all f/up appointments, did teaching with her regarding urostomy bag, and hand out given, she verbalized understanding, IV canula removed with tip intact, no ss of infiltration noted, daughter at bed side
[2019-06-04] MEDS ORDERED: KEFLEX500 MG PO (14:49)
[2019-06-04] MEDS ORDERED: ONDANSETRON HCL 4 MG ORAL DISINTEGRATING TAB PO PRN (15:00)
== END 2019-06-04 15:00 | disposition home or self-care (01) | DRG 871 ==
LOC: ER 11:32 → ERHOLD 15:52 → ICU 05-29 14:49 → MED/SURG3 06-01 15:45
PROVIDERS: ADMIT Internal Medicine; ATTEND Internal Medicine
PROC: 02HV33Z Insertion of Infusion Device into Superior Vena Cava, Percutaneous Approach (ICD-10-PCS; 2019-05-29)
PROC: 0T9030Z Drainage of Right Kidney with Drainage Device, Percutaneous Approach (ICD-10-PCS; principal; 2019-05-29 16:49)
DX: A41.9 Sepsis, unspecified organism (principal); R65.21 Severe sepsis with septic shock; I21.A1 Myocardial infarction type 2; N20.2 Calculus of kidney with calculus of ureter; N17.9 Acute kidney failure, unspecified; N13.6 Pyonephrosis; N12 Tubulo-interstitial nephritis, not specified as acute or chronic; R00.1 Bradycardia, unspecified; D69.6 Thrombocytopenia, unspecified; I10 Essential (primary) hypertension
CPT/HCPCS: 36415; 50430; 51700; 71045; 71275; 74174; 74470; 76942; 80048; 80053; 80061; 81001; 82270; 82550; 82553; 83605; 83735; 83880; 84100; 84443; 84484; 85025; 85610; 85730; 87040; 87071; 87086; 87186; 87205; 93005; 93306; 93971; 94640; 97139; 99285; J0690; J0696; J1170; J1200; J1580; J1650; J1940; J2001; J2020; J2250; J2270; J2405; J2543; J2550; J3010; J3480; J7030; J7050; Q9967

== ENCOUNTER → 2019-06-08 | Day surgery (SDC) | payer OTHER ==
[~2019-06-08] MED LIST changes: +DEXAMETHASONE SOD PHOS INJ 4 MG/ML VIAL ONE; +FENTANYL CITRATE/PF 100MCG/2 ML INJ ONE; +GENTAMICIN 120MG/NS 100ML 100 ML ONE; +IOPAMIDOL 300MG/ML 50ML INFUS..BTL IV ONE; +IRBESARTAN75 MG PO; +KEFLEX500 MG PO; +LIDOCAINE HCL 2% LOCAL INJ 5 ML SDV VIAL INJ ONE; +MIDAZOLAM HCL 2 MG/2 ML VIAL ONE; +ONDANSETRON HCL INJ 2MG/ML 2ML 2 MG/ML VIAL ONE; +PROPOFOL IV EMULSION 10 MG/ML 20 ML VIAL ONE; +SEVOFLURANE INHAL SOLN 250 ML PEN BTL ONE
[2019-06-08 09:10] VITALS: BP 127/73
--- NOTE | 2019-06-08 12:25 | Operative Report ---
DATE OF PROCEDURE: 06/08/2019 SURGEON: Yuriy Yan MD PREOPERATIVE DIAGNOSIS: Right ureteral calculus. POSTOPERATIVE DIAGNOSIS: Right ureteral calculus. PROCEDURES: 1. Right nephrostogram. 2. Staged right shock wave lithotripsy. ANESTHESIA: General. ESTIMATED BLOOD LOSS: Minimal. COMPLICATIONS: None. INDICATIONS: Ms. Ybarra is a very pleasant 58-year-old female, who was previously septic with obstructed and infected right proximal ureteral calculi requiring nephrostomy. She now presents for definitive management. She voiced understanding of the options, alternatives, risks, and benefits of doing nothing, shock wave lithotripsy, ureteroscopy, percutaneous surgery or open surgery. She elected to proceed. PROCEDURE IN DETAIL: After informed consent was obtained, the patient was taken to the operative suite, place supine on the operating table, and underwent general anesthesia by the Anesthesia Service. She was placed in the supine position. The stone was localized in the X, Y and Z planes. Shockwave lithotripsy was performed per the treatment report. Nephrostogram was performed revealing very tight obstruction area with some fragmentation seen with lithotripsy. The patient was awakened from the anesthesia and transferred to the recovery room in excellent condition. No untoward effects noted. Right-sided nephrostogram. The patient was prepped and draped in standard fashion for nephrostogram. Contrast was injected in the nephrostomy tube revealing dilated collecting system. Still tight obstruction with some fragmentation of stone seen. Yuriy Yan MD ES/MODL /[id number] cc: Garret Nation MD
== END | disposition home or self-care (01) ==
LOC: OR 05:12
PROVIDERS: ATTEND Urology
DX: N13.2 Hydronephrosis with renal and ureteral calculous obstruction (principal); Z43.6 Encounter for attention to other artificial openings of urinary tract; I10 Essential (primary) hypertension; K21.9 Gastro-esophageal reflux disease without esophagitis
CPT/HCPCS: 50431; 50590; J1100; J1580; J2001; J2250; J2405; J2704; J3010; Q9967

== ENCOUNTER 2019-08-01 19:09 | Emergency (ER) | payer OTHER ==
[~2019-08-01] VITALS: Ht 154.9 cm; Wt 64.4 kg
[~2019-08-01 19:09] MED LIST changes: -DEXAMETHASONE SOD PHOS INJ 4 MG/ML VIAL ONE; -FENTANYL CITRATE/PF 100MCG/2 ML INJ ONE; -GENTAMICIN 120MG/NS 100ML 100 ML ONE; -IOPAMIDOL 300MG/ML 50ML INFUS..BTL IV ONE; -LIDOCAINE HCL 2% LOCAL INJ 5 ML SDV VIAL INJ ONE; -MIDAZOLAM HCL 2 MG/2 ML VIAL ONE; -ONDANSETRON HCL INJ 2MG/ML 2ML 2 MG/ML VIAL ONE; -PROPOFOL IV EMULSION 10 MG/ML 20 ML VIAL ONE; -SEVOFLURANE INHAL SOLN 250 ML PEN BTL ONE
[2019-08-01] MEDS ORDERED: SODIUM CHLORIDE 0.9% 1000ML 1,000 ML IV STA (19:35)
[2019-08-01] MEDS ORDERED: ONDANSETRON HCL INJ 2MG/ML 2ML 2 MG/ML VIAL IV ONE (19:35)
[2019-08-01] MEDS ORDERED: KETOROLAC TROMETHAMINE 30 MG/ML VIAL IV ONE (19:35)
--- NOTE | 2019-08-01 20:59 | Diagnostic Imaging Report ---
CT Abdomen and Pelvis without contrast INDICATION: ^STONE PROTOCOL ^[id number] ^2027 ^Y TECHNIQUE: Thin collimation axial images obtained from the diaphragm to the level of the pubic symphysis without nonionic intravenous contrast. Dose reduction techniques used: Automated exposure control, adjustment of the mAs and/or kVp according to patient size, standardized low-dose protocol, and/or iterative reconstruction technique. RADIATION DOSE: Total DLP: 221.47 mGy*cm Estimated effective dose: (DLP x 0.015 x size factor) mSv CTDIvol has been reviewed. It is below the limits set by the Radiation Protocol Committee (RPC). COMPARISON: CTA abdomen/pelvis 05/28/2019. ABDOMEN FINDINGS: Lung Bases: Trace bibasilar atelectasis. Calcified granuloma in the left lower lobe measures 4 mm. The visualized portion of the mediastinum is normal. Liver: Normal in attenuation without mass. Gallbladder: Present and appears normal. No ductal dilatation. Pancreas: A calcification the pancreas tail is within the splenic artery on CTA. No soft tissue mass or ductal dilatation. Spleen: Normal size without mass. Adrenal Glands: No evidence for mass. Kidneys: Right: No renal calculus. No cortical mass or hydronephrosis Left: No renal calculus. No cortical mass or hydronephrosis Lymph Nodes: No enlarged abdominal or periaortic lymph nodes. Aorta: Normal in diameter with scattered calcifications. PELVIS FINDINGS: Bowel: Stomach: Normal. Small Bowel: Normal in caliber with normal wall thickness. Large Bowel: Diverticulosis coli. No associated inflammation. No large bowel dilatation or pericolonic inflammation. Appendix: Normal. Bladder: Normal. Ureters: No ureteral dilatation or calculus. The uterus is absent. No adnexal mass. Peritoneum/retroperitoneum: No free fluid or fluid collection. Bones: Grade 1 anterolisthesis of L4 on L5 without pars defects. Small posterior disc bulge at this level. Soft tissues: Unremarkable IMPRESSION: 1. No evidence of renal calculus or obstructive uropathy. 2. Diverticulosis coli. No evidence for bowel obstruction or inflammation. Signed by: Dr. Brian Jauregui MD on 08/01/2019 8:56 PM
[2019-08-01 21:21] LABS: BILIRUBIN,URINE NEGATIVE (NEGATIVE); CLARITY,URINE CLEAR (CLEAR); COLOR,URINE YELLOW (YELLOW); KETONES,URINE NEGATIVE (NEGATIVE); LEUKOCYTE ESTERASE ,URINE NEGATIVE (NEGATIVE); NITRITE,URINE NEGATIVE (NEGATIVE); PROTEIN,URINE DIPSTICK NEGATIVE (NEGATIVE); URINE UROBILINOGEN 0.2 mg/dL (0.2 - 1)
[2019-08-01 21:33] LABS: EPITHELIAL CELLS,URINE FEW /LPF
[2019-08-01 22:29] VITALS: BP 140/76
== END 2019-08-01 22:47 | disposition home or self-care (01) ==
LOC: ER 19:09
DX: S39.012A Strain of muscle, fascia and tendon of lower back, initial encounter (principal); R10.31 Right lower quadrant pain; R11.0 Nausea; I10 Essential (primary) hypertension; E78.5 Hyperlipidemia, unspecified
CPT/HCPCS: 74176; 81001; 96374; 99283; J1885; J2405; J7030

== ENCOUNTER → 2019-10-19 | Day surgery (SDC) | payer OTHER ==
[2019-10-17 12:32] LABS: EOSINOPHILS # (AUTO) 0.2 (0.0-0.4); EOSINOPHILS % 4.4 % (0.0-6.0); HEMATOCRIT 39.3 % (34.2-44.1); HEMOGLOBIN 12.7 g/dL (12.0-16.0); LYMPHOCYTES % 24.7 % (18.0-39.1); MEAN CORPUSCULAR HGB CONC 32.3 g/dL (31-35); MEAN CORPUSCULAR VOLUME 86.6 fL (81-99); MONOCYTES # (AUTO) 0.5 (0.2-0.8); MONOCYTES % 13.4 % (4.4-11.3); NEUTROPHILS # (AUTO) 2.2 (2.1-6.9); NEUTROPHILS % 56.2 % (38.7-80.0); PLATELET COUNT 256 x10e3/uL (140-360); RED BLOOD COUNT 4.54 x10e6/uL (3.6-5.1); RED CELL DISTRIBUTION WIDTH 12.3 % (11.7-14.4)
[~2019-10-19] MED LIST changes: +FENTANYL CITRATE/PF 100MCG/2 ML INJ ONE; +GLUCAGON FOR INJ 1 MG VIAL ONE; +HYOSCYAMINE 0.125 MG TAB ONE; +LIDOCAINE HCL 2% LOCAL INJ 5 ML SDV VIAL INJ ONE; +MIDAZOLAM HCL 2 MG/2 ML VIAL ONE; +PROPOFOL IV EMULSION 10 MG/ML 50 ML VIAL ONE
[2019-10-19 14:15] VITALS: BP 115/73
--- NOTE | 2019-10-19 20:58 | Operative Report ---
DATE OF PROCEDURE: 10/19/2019 SURGEON: Devon Hung MD PROCEDURE: Colonoscopy with polypectomy and biopsies. INDICATIONS FOR COLONOSCOPY: Colorectal cancer screening. MEDICATIONS: The patient was done under MAC, please see anesthesiologist's note. PROCEDURE IN DETAIL: With the patient in the left lateral decubitus position, a flexible fiberoptic Olympus colonoscope was inserted into the rectum with ease and advanced all the way to the cecum. The mucosa overlying the cecum and ascending colon appeared to be within normal limits. One polyp was hot biopsied from the hepatic flexure. The transverse colon appeared to be within normal limits. Two polyps were hot biopsied from the descending colon. Diverticular disease was noted to involve the descending as well as the sigmoid colon. An approximately 1.5 cm sessile inflammatory mass was noted in the distal inflammatory lesion was noted in the distal sigmoid colon ? resolving diverticulitis was biopsied. An approximately 1 cm sessile polyp was removed per snare electrocautery from the rectum. The scope was then retroflexed into the distal rectum and small internal hemorrhoids were noted, none of which was actively bleeding. The scope was then straightened out and it was subsequently withdrawn. The patient tolerated the procedure well. IMPRESSION: 1. Hepatic flexure polyp, hot biopsied. 2. Descending colon polyps x2, hot biopsied. 3. Diverticulosis. 4. Approximately 1.5 cm sessile inflammatory lesion, distal sigmoid colon ? resolving diverticulitis, biopsied. 5. Approximately 1 cm sessile rectal polyp removed per snare electrocautery. 6. Internal hemorrhoids, none actively bleeding. PLAN: Follow up histology. Initiate Flagyl 500 mg one p.o. q.i.d. x14 days and Levaquin 500 mg one p.o. daily x14 days. Devon Hung MD [facility]/MODL /[id number] cc: Garret Nation MD
== END | disposition home or self-care (01) ==
LOC: OR 09:30
PROVIDERS: ATTEND Internal Medicine Gastroenterology
DX: Z12.11 Encounter for screening for malignant neoplasm of colon (principal); D12.3 Benign neoplasm of transverse colon; D12.8 Benign neoplasm of rectum; K57.30 Diverticulosis of large intestine without perforation or abscess without bleeding; K63.89 Other specified diseases of intestine; K64.8 Other hemorrhoids; K21.9 Gastro-esophageal reflux disease without esophagitis; I10 Essential (primary) hypertension; N20.0 Calculus of kidney; I71.9 Aortic aneurysm of unspecified site, without rupture; Z88.6 Allergy status to analgesic agent; Z88.1 Allergy status to other antibiotic agents; Z88.0 Allergy status to penicillin; Z88.2 Allergy status to sulfonamides; Z01.810 Encounter for preprocedural cardiovascular examination; Z01.812 Encounter for preprocedural laboratory examination
CPT/HCPCS: 36415; 45380; 45384; 45385; 85025; 93005; J1610; J2001; J2250; J2704; J3010; 45378

== ENCOUNTER → 2019-11-02 | Outpatient (CLI) | payer OTHER ==
[~2019-11-02] MED LIST changes: -FENTANYL CITRATE/PF 100MCG/2 ML INJ ONE; -GLUCAGON FOR INJ 1 MG VIAL ONE; -HYOSCYAMINE 0.125 MG TAB ONE; -LIDOCAINE HCL 2% LOCAL INJ 5 ML SDV VIAL INJ ONE; -MIDAZOLAM HCL 2 MG/2 ML VIAL ONE; -PROPOFOL IV EMULSION 10 MG/ML 50 ML VIAL ONE
--- NOTE | 2019-11-02 12:25 | Diagnostic Imaging Report ---
Abdomen, 1 view. History: Renal calculus. Findings: Air is scattered throughout nondilated small and large bowel. There are no visible renal calculi. Calcified phlebolith are present within the pelvis bilaterally. There are no masses or abnormal calcifications. The osseous structures are intact. IMPRESSION: Non-specific bowel gas pattern. Signed by: Caden Eng on 11/02/2019 12:22 PM
== END ==
LOC: RAD 11:52
PROVIDERS: ATTEND Urology
DX: N20.0 Calculus of kidney (principal)
CPT/HCPCS: 74018

== ENCOUNTER → 2020-03-28 | Day surgery (SDC) | payer OTHER ==
[2020-03-24 11:43] LABS: BASOPHILS % 1.6 % (0.0-1.0); EOSINOPHILS # (AUTO) 0.2 (0.0-0.4); EOSINOPHILS % 8.5 % (0.0-6.0); HEMATOCRIT 39.9 % (34.2-44.1); HEMOGLOBIN 13.2 g/dL (12.0-16.0); LYMPHOCYTES # (AUTO) 0.9 (1.0-3.2); LYMPHOCYTES % 48.7 % (18.0-39.1); MEAN CORPUSCULAR HEMOGLOBIN 28.8 pg (28-32); MEAN CORPUSCULAR HGB CONC 33.1 g/dL (31-35); MEAN CORPUSCULAR VOLUME 86.9 fL (81-99); MONOCYTES # (AUTO) 0.3 (0.2-0.8); MONOCYTES % 16.9 % (4.4-11.3); NEUTROPHILS # (AUTO) 0.5 (2.1-6.9); NEUTROPHILS % 24.3 % (38.7-80.0); PLATELET COUNT 181 x10e3/uL (140-360); RED BLOOD COUNT 4.59 x10e6/uL (3.6-5.1); RED CELL DISTRIBUTION WIDTH 12.2 % (11.7-14.4)
[2020-03-24 12:18] LABS: EOSINOPHILS % (MANUAL) 4 % (0-7); LYMPHOCYTES % (MANUAL) 60 % (19-48); MONOCYTES % (MANUAL) 12 % (3.4-9.0); NEUTROPHILS % (MANUAL) 22 % (40-74)
[2020-03-24 12:19] LABS: HYPOCHROMASIA MODERATE; PLATELET ESTIMATE ADEQUATE; PLATELET MORPHOLOGY COMMENT FEW LARGE; POIKILOCYTOSIS SLIGHT
[~2020-03-28] MED LIST changes: +ETOMIDATE 2 MG/ML 10 ML INJ IV ONE; +GLYCOPYRROLATE INJ 0.2 MG/ML VIAL ONE; +HYOSCYAMINE 0.125 MG TAB ONE; +LIDOCAINE HCL 2% LOCAL INJ 5 ML SDV VIAL INJ ONE; +PROPOFOL IV EMULSION 10 MG/ML 20 ML VIAL ONE
[2020-03-28 13:00] VITALS: BP 105/94
--- NOTE | 2020-03-28 13:35 | Operative Report ---
DATE OF PROCEDURE: 03/28/2020 SURGEON: Devon Hung MD PROCEDURE: Colonoscopy with polypectomy and biopsies. INDICATIONS FOR COLONOSCOPY: History of? inflammatory mass distal sigmoid colon, intermittent diarrhea. Colonoscopy is being carried out to re-evaluate lesion, document resolution and removal of any residual tissue. MEDICATIONS: The patient was done under MAC, please see anesthesiologist's note. PROCEDURE IN DETAIL: With the patient in the left lateral decubitus position, a flexible fiberoptic Olympus colonoscope was inserted into the rectum with ease and advanced all the way to the cecum. A minute polyp was removed from the cecum. The ileocecal valve was intubated with ease and the terminal ileum mucosa appeared with patchy inflammatory changes and biopsies were obtained. The scope was then withdrawn back into the colon. It was then withdrawn slowly, a minute polyp was removed per the cold biopsy forceps from the ascending colon. The transverse appeared to be within normal limits. Mild inflammatory changes were noted in the left colon and multiple random biopsies were obtained. Diverticular disease was noted to involve the sigmoid as well as the descending colon. The rectum grossly appeared to be within normal limits. The scope was then retroflexed into the distal rectum and small internal hemorrhoids were noted, none of which was actively bleeding. The scope was then straightened out, it was subsequently withdrawn, and the patient tolerated the procedure well. IMPRESSION: 1. Cecal polyp removed per cold biopsy forceps. 2. Ascending colon polyp removed per cold biopsy forceps. 3. Diverticulosis. 4. Mild patchy left-sided colitis. 5. Internal hemorrhoids, none actively bleeding. PLAN: Follow up histology. Initiate VSL#3 one p.o. b.i.d. The patient might benefit from a followup colonoscopy in 3 to 5 years. Devon Hung MD [facility] [place]/MODL /[id number] cc: Garret Nation MD
== END | disposition home or self-care (01) ==
LOC: OR 08:12
PROVIDERS: ATTEND Internal Medicine Gastroenterology
DX: K57.92 Diverticulitis of intestine, part unspecified, without perforation or abscess without bleeding (principal); D12.2 Benign neoplasm of ascending colon; K51.50 Left sided colitis without complications; K64.8 Other hemorrhoids; I10 Essential (primary) hypertension; Z88.6 Allergy status to analgesic agent; Z88.1 Allergy status to other antibiotic agents; Z88.0 Allergy status to penicillin; Z88.2 Allergy status to sulfonamides; Z88.7 Allergy status to serum and vaccine; Z01.810 Encounter for preprocedural cardiovascular examination; Z01.812 Encounter for preprocedural laboratory examination; Z11.59 Encounter for screening for other viral diseases
CPT/HCPCS: 36415; 45380; 45384; 85025; J2001; U0002

== ENCOUNTER → 2020-06-16 | Outpatient (CLI) | payer OTHER ==
[~2020-06-16] MED LIST changes: -ETOMIDATE 2 MG/ML 10 ML INJ IV ONE; -GLYCOPYRROLATE INJ 0.2 MG/ML VIAL ONE; -HYOSCYAMINE 0.125 MG TAB ONE; -LIDOCAINE HCL 2% LOCAL INJ 5 ML SDV VIAL INJ ONE; -PROPOFOL IV EMULSION 10 MG/ML 20 ML VIAL ONE
== END ==
LOC: RAD 11:52
PROVIDERS: ATTEND Urology
DX: N20.0 Calculus of kidney (principal)
CPT/HCPCS: 74018

== ENCOUNTER → 2023-08-01 | Outpatient (REF) | payer OTHER ==
[~2023-08-01] MED LIST changes: +CRESTOR10 MG PO; +IOPAMIDOL 370 MG/ML 100 ML INFUS..BTL INJ ONE
[2023-08-01 10:32] LABS: CREATININE, SERUM 0.8 mg/dL (0.57-1.11)
== END ==
LOC: CT 09:49
PROVIDERS: ATTEND Nurse Practitioner
DX: R14.0 Abdominal distension (gaseous) (principal); K66.0 Peritoneal adhesions (postprocedural) (postinfection)
CPT/HCPCS: 36415; 74177; 82565; 84520; Q9967